=== PATIENT | female | born 1965 | race Caucasian/White ===

== ENCOUNTER 2016-08-22 23:21 | Observation (INO) | payer MEDICAID ==
[~2016-08-22] VITALS: Ht 170.2 cm; Wt 75.0 kg
[~2016-08-22 23:21] MED LIST: ALPR1TAB3 PO; CEPH-460 PO; PROT40TA PO; ULTR50TA5 PO; ZOLO100T PO
[2016-08-22 23:23] VITALS: BP 145/92; PULSE 100; RESP 22; TEMP 98.2; O2SAT 96
[2016-08-23] VITALS (10 sets, daily range): BP systolic 126–154; BP diastolic 76–93; PULSE 92–110; RESP 16–18; TEMP 97.8–98.8; O2SAT 96–100
[2016-08-23] MEDS ORDERED: SODIUM CHLOR 0.9% 1000 ML INJ 1,000 ML IV SCH (01:03)
[2016-08-23] MEDS ORDERED: KETOROLAC TROMETHAMINE 30 MG/ML (IVP) VIAL IVP ONE (01:15)
[2016-08-23] MEDS ORDERED: ONDANSETRON HCL 4 MG/2 ML VIAL IVP ONE (01:15)
[2016-08-23] MEDS ORDERED: SODIUM CHLORIDE 0.9% FLUSH 10 ML FLUSH IV FLUSH PRN ×2 (01:15→05:30)
[2016-08-23 01:55] LABS: AUTOMATED NEUTROPHIL # 2.9 TH/MM3 (1.8-7.7); BASOPHIL % 0.9 % (0.0-2.0); HEMATOCRIT 46.2 % (35.0-46.0); HEMO FLAGS DIFF FINAL; LYMPH % 22.9 % (9.0-44.0); LYMPHOCYTE # 0.9 TH/MM3 (1.0-4.8); MEAN CELL VOLUME 94.1 FL (80.0-100.0); MEAN CORPUSCULAR HEMOGLOBIN 33.4 PG (27.0-34.0); MEAN CORPUSCULAR HGB CONC 35.5 % (32.0-36.0); MONO % 1.2 % (0.0-8.0); PLATELET COUNT 269 TH/MM3 (150-450); RED BLOOD COUNT 4.91 MIL/MM3 (4.00-5.30); RED CELL DISTRIBUTION WIDTH 14.4 % (11.6-17.2); WHITE BLOOD COUNT 3.9 TH/MM3 (4.0-11.0)
[2016-08-23 02:07] LABS: APTT (PATIENT) 32.4 SEC (24.3-30.1); INTERNATIONAL NORMALIZED RATIO 1.3 RATIO; PROTHROMBIN TIME - PATIENT 14.7 SEC (9.8-11.6)
[2016-08-23 02:37] LABS: ALT (GPT) 345 U/L (10-53); ANION GAP 15 MEQ/L (5-15); AST (GOT) 629 U/L (15-37); BICARBONATE 23.4 MEQ/L (21.0-32.0); BLOOD UREA NITROGEN 23 MG/DL (7-18); CHLORIDE 97 MEQ/L (98-107); GLOMERULAR FILTRATION RATE 68 ML/MIN (>89); POTASSIUM 3.8 MEQ/L (3.5-5.1); SODIUM (NA) 135 MEQ/L (136-145)
[2016-08-23 02:38] LABS: ALKALINE PHOSPHATASE 250 U/L (45-117); TOTAL BILIRUBIN ADULT 1.9 MG/DL (0.2-1.0)
--- NOTE | 2016-08-23 03:10 | PD ---
HPI Chief Complaint: Abdominal Pain Time Seen by Provider: 00:54 Travel History International Travel<30 days: No Contact w/Intl Traveler<30days: No Traveled to known affect area: No History of Present Illness HPI 50yo F with PMH of anxiety, GERD, alcohol abuse presents to the ED with c/o abdominal pain today. +Vomiting. States there is blood in vomit. Pt had cholecystectomy 11/30/15 and was here with pneumonitis and elevated LFTs 01/31/16- 02/06/16. Denies any fever, chest pain, sob, focal weakness or numbness. PFSH Past Medical History Anxiety: Yes Depression: Yes Cardiovascular Problems: No Diminished Hearing: No Genitourinary: No Musculoskeletal: No Neurologic: No Reproductive: No Respiratory: No Immunizations Current: No Tetanus Vaccination: < 5 Years Influenza Vaccination: No ?: Not Menopausal: Yes : 2 Para: 2 Miscarriage: 0 : 0 Past Surgical History Abdominal Surgery: Yes (hernia) Cholecystectomy: Yes Other Surgery: Yes (BREAST IMPLANTS) Social History Alcohol Use: Yes (3-4 x per week.) Tobacco Use: No Substance Use: No Allergies-Medications (Allergen,Severity, Reaction): Coded Allergies: Amoxicillin (Verified Allergy, Severe, HIVES, 08/23/16) Reported Meds & Prescriptions Reported Meds & Active Scripts Active Reported Alprazolam 1 Mg Tab 1 Mg PO BID PRN Protonix (Pantoprazole Sodium) 40 Mg Tab 40 Mg PO DAILY Zoloft (Sertraline HCl) 100 Mg Tab 100 Mg PO DAILY Review of Systems Except as stated in HPI: all other systems reviewed are Neg Physical Exam Narrative GENERAL: 50yo F in mild distress. SKIN: Focused skin assessment warm/dry. HEAD: Atraumatic. Normocephalic. EYES: Pupils equal and round. No scleral icterus. No injection or drainage. ENT: No nasal bleeding or discharge. Mucous membranes pink and moist. NECK: Trachea midline. No JVD. CARDIOVASCULAR: Regular rate and rhythm. No murmur appreciated. RESPIRATORY: No accessory muscle use. Clear to auscultation. Breath sounds equal bilaterally. GASTROINTESTINAL: Abdomen soft, +TTP epigastric region. No rebound tenderness or guarding. MUSCULOSKELETAL: No obvious deformities. No clubbing. No cyanosis. No edema. NEUROLOGICAL: Awake and alert. No obvious cranial nerve deficits. Motor grossly within normal limits. Normal speech. PSYCHIATRIC: Appropriate mood and affect; insight and judgment normal. Data Data Last Documented VS Vital Signs Date Time Temp Pulse Resp B/P Pulse Ox O2 Delivery O2 Flow Rate FiO2 08/23/16 04:23 101 18 154/92 100 Room Air 08/22/16 23:23 98.2 Orders Complete Blood Count With Diff (08/23/16 01:03) Comprehensive Metabolic Panel (08/23/16 01:03) Lipase (08/23/16 01:03) Prothrombin Time / Inr (Pt) (08/23/16 01:03) Act Partial Throm Time (Ptt) (08/23/16 01:03) Urinalysis - C+S If Indicated (08/23/16 01:03) Ct Abd/Pel W Iv Contrast(Rout) (08/23/16 01:03) Iv Access Insert/Monitor (08/23/16 01:03) Ecg Monitoring (08/23/16 01:03) Oximetry (08/23/16 01:03) Ondansetron Inj (Zofran Inj) (08/23/16 01:15) Sodium Chlor 0.9% 1000 Ml Inj (Ns 1000 M (08/23/16 01:03) Sodium Chloride 0.9% Flush (Ns Flush) (08/23/16 01:15) Electrocardiogram (08/23/16 01:03) Ketorolac Inj (Toradol Inj) (08/23/16 01:15) Ed Urine Pregnancytest Poc (08/23/16 01:03) Tylenol (Acetaminophen) (08/23/16 03:08) Bhcg Screen Qualitative (08/23/16 03:12) Morphine Inj (Morphine Inj) (08/23/16 03:30) Iohexol 350 Inj (Omnipaque 350 Inj) (08/23/16 04:33) Metoclopramide Inj (Reglan Inj) (08/23/16 04:45) Sodium Chlor 0.9% 1000 Ml Inj (Ns 1000 M (08/23/16 05:15) Lorazepam Inj (Ativan Inj) (08/23/16 05:15) Admit Order (Ed Use Only) (08/23/16 05:29) Place In Observation (08/23/16 ) Vital Signs (Adult) Q4H (08/23/16 05:27) Activity Oob With Assistance (08/23/16 05:27) Game Master / Telemetry .CONTINUOUS (08/23/16 05:27) Diet Npo (08/23/16 Breakfast) Sodium Chloride 0.9% Flush (Ns Flush) (08/23/16 05:30) Sodium Chloride 0.9% Flush (Ns Flush) (08/23/16 09:00) Ondansetron Inj (Zofran Inj) (08/23/16 05:30) Naloxone Inj (Narcan Inj) (08/23/16 05:30) Sodium Chlor 0.9% 1000 Ml Inj (Ns 1000 M (08/23/16 05:30) Labs Laboratory Tests Test 08/23/16 01:45 White Blood Count 3.9 TH/MM3 Red Blood Count 4.91 MIL/MM3 Hemoglobin 16.4 GM/DL Hematocrit 46.2 % Mean Corpuscular Volume 94.1 FL Mean Corpuscular Hemoglobin 33.4 PG Mean Corpuscular Hemoglobin 35.5 % Concent Red Cell Distribution Width 14.4 % Platelet Count 269 TH/MM3 Mean Platelet Volume 8.0 FL Neutrophils (%) (Auto) 75.0 % Lymphocytes (%) (Auto) 22.9 % Monocytes (%) (Auto) 1.2 % Eosinophils (%) (Auto) 0.0 % Basophils (%) (Auto) 0.9 % Neutrophils # (Auto) 2.9 TH/MM3 Lymphocytes # (Auto) 0.9 TH/MM3 Monocytes # (Auto) 0.0 TH/MM3 Eosinophils # (Auto) 0.0 TH/MM3 Basophils # (Auto) 0.0 TH/MM3 CBC Comment DIFF FINAL Differential Comment Prothrombin Time 14.7 SEC Prothromb Time International 1.3 RATIO Ratio Activated Partial 32.4 SEC Thromboplast Time Sodium Level 135 MEQ/L Potassium Level 3.8 MEQ/L Chloride Level 97 MEQ/L Carbon Dioxide Level 23.4 MEQ/L Anion Gap 15 MEQ/L Blood Urea Nitrogen 23 MG/DL Creatinine 0.88 MG/DL Estimat Glomerular Filtration 68 ML/MIN Rate Random Glucose 141 MG/DL Calcium Level 9.4 MG/DL Total Bilirubin 1.9 MG/DL Aspartate Amino Transf 629 U/L (AST/SGOT) Alanine Aminotransferase 345 U/L (ALT/SGPT) Alkaline Phosphatase 250 U/L Total Protein 8.1 GM/DL Albumin 4.3 GM/DL Lipase 96 U/L Beta HCG, Qualitative 1 MIU/ML Acetaminophen Level LESS THAN 2.0 MCG/ML MDM Medical Decision Making Medical Screen Exam Complete: Yes Emergency Medical Condition: Yes Interpretation(s) EKG: Sinus tachycardia at 103bpm. Normal axis. Differential Diagnosis Pancreatitis vs. choledocholithiasis vs. alcoholic hepatitis Narrative Course 50yo F with PSH cholecystectomy presents to the ED with abdominal pain. Labs reviewed, low WBC at 3.9. Hemoconcentrated. Marked elevated liver enzymes, with AST 629, ALT 345, alk phos 250 compare to 01/2016. May be alcoholic hepatitis. Bilirubin has decreased to 1.9 compare to last time. Lipase normal at 96. Acetaminophen level was added since last time she had acetaminophen overdose when she had elevated liver enzymes and it was negative this time. BUN /creatinine 23/0.88. Pt has gotten zofran and reglan but is still nauseous and not tolerating PO. as per nurse, her vomit was brown, liquid and nonbloody. PT given NS IVF, still mildly tachycardic at 100-105bpm. Will given another liter of NS IVF. Pt may also be withdrawing from alcohol as her last drink was yesterday and she states she has been drinking daily. Will give ativan 1mg IV. CTa/p showed no acute abnormality. Slight fatty infiltration of liver again seen. Diagnosis Primary Impression: Intractable vomiting Qualified Code: R11.2 - Intractable vomiting with nausea, unspecified vomiting type Additional Impression: Elevated liver enzymes Admitting Information Admitting Physician Requests: Iesha Campbell DO Aug 23, 2016 03:10
[2016-08-23] MEDS ORDERED: MORPHINE SULFATE 8 MG/ML INJ IV PUSH ONE (03:30)
[2016-08-23] MEDS ORDERED: IOHEXOL 350 MG/ML 10 ML VIAL (for RAD DIAG) IV ONE (04:33)
[2016-08-23] MEDS ORDERED: METOCLOPRAMIDE INJ 10 MG in SODIUM CHLORIDE 0.9% INJ 50 ML IV ONE (04:45)
--- NOTE | 2016-08-23 04:55 | RADRPT ---
EXAM DATE/TIME: 08/23/2016 04:30 [facility] COMPARISON: CT ABDOMEN & PELVIS W CONTRAST, November 26, 2015, 23:05. INDICATIONS : Abdomen pain with nausea and vomiting. IV CONTRAST: 100 cc Omnipaque 350 (iohexol) IV ORAL CONTRAST: No oral contrast ingested. RADIATION DOSE: 11.64 CTDIvol (mGy) MEDICAL HISTORY : Gallstones SURGICAL HISTORY : Hysterectomy. Cholecystectomy.Hernia repair. ENCOUNTER: Initial ACUITY: 1 day PAIN SCALE: 5/10 LOCATION: abdomen TECHNIQUE: Volumetric scanning of the abdomen and pelvis was performed. Using automated exposure control and ad justment of the mA and/or kV according to patient size, radiation dose was kept as low as reasonably achievable to obtain optimal diagnostic quality images. FINDINGS: LOWER LUNGS: The visualized lower lungs are clear. LIVER: Homogeneous density without lesion. Slightly fatty. There is no dilation of the biliary tree. Interi m cholecystectomy. SPLEEN: Normal size without lesion. PANCREAS: Within normal limits. KIDNEYS: Normal in size and shape. There is no mass, stone or hydronephrosis. ADRENAL GLANDS: Within normal limits. VASCULAR: There is no aortic aneurysm. BOWEL/MESENTERY: The stomach, small bowel, and colon demonstrate no acute abnormality. There is no free intraperitone al air or fluid. The appendix is well-visualized and has a normal appearance. ABDOMINAL WALL: Within normal limits. RETROPERITONEUM: There is no lymphadenopathy. BLADDER: No wall thickening or mass. REPRODUCTIVE: Within normal limits. INGUINAL: There is no lymphadenopathy or hernia. MUSCULOSKELETAL: Disc space narrowing with vacuum phenomena again noted at L5/S1. No acute bony abnormality seen. CONCLUSION: No acute abnormality demonstrated. Cholecystectomy since the prior CT without evidence of an acute co mplication. Slight fatty infiltration of the liver again seen. Segundo Montiel MD on August 23, 2016 at 4:51 Board Certified Radiologist. This report was verified electronically.
[2016-08-23] MEDS ORDERED: SODIUM CHLOR 0.9% 1000 ML INJ 1,000 ML IV ONE (05:15)
[2016-08-23] MEDS ORDERED: LORazepam 2 MG/ML VIAL IV PUSH ONE (05:15)
[2016-08-23] MEDS ORDERED: NALOXONE HCL 0.4 MG/ML AMP IV PRN (05:30)
[2016-08-23] MEDS: SODIUM CHLOR 0.9% 1000 ML INJ 1,000 ML IV SCH ×3 (06:46→20:37)
--- NOTE | 2016-08-23 07:41 | EKG ---
Date Performed: 08/23/2016 Time Performed: 03:33:30 PTAGE: 50 years EKG: SINUS TACHYCARDIA POSSIBLE LEFT ATRIAL ENLARGEMENT ABNORMAL RHYTHM ECG NO SIGNIFICANT LARIOS E FROM PRIOR ELECTROCARDIOGRAM. PREVIOUS TRACING : 01/31/2016 04.01 DOCTOR: Lester Bauer Interpretating Date/Time 08/23/2016 07:40:27
[2016-08-23] MEDS: SODIUM CHLORIDE 0.9% FLUSH 10 ML FLUSH IV FLUSH SCH ×2 (08:54→20:37)
[2016-08-23] MEDS: ONDANSETRON HCL 4 MG/2 ML VIAL IVP PRN ×2 (10:10→20:38)
[2016-08-23] MEDS: MORPHINE SULFATE 4 MG/ML INJ IV PUSH PRN ×3 (10:10→20:38)
--- NOTE | 2016-08-23 10:23 | HHI.HP ---
[facility] Non[facility]Staff Admission Diagnosis Dehydration, intractable vomiting, elevated liver enzymes Diagnoses: Chief Complaint: Intractable emesis and elevated LFTs Travel History International Travel<30 Days: No Contact w/Intl Traveler <30 Da: No Traveled to Known Affected Are: No History of Present Illness 50-year-old female past medical history of cholelithiasis status post laparoscopic cholecystectomy and ERCP with sphincterotomy in November 2015 now presents with intractable emesis and abdominal pain. Patient stated that yesterday she drank some milk in the morning took her kids to school been started having severe emesis about 20 times yesterday. She stated that emesis looked bloody. She then developed abdominal pain. Patient also had diarrhea for the last few weeks. About 3-4 loose stools a day. Denies any recent use of antibiotics. She also states she had a fever on Friday of 102. She has been afebrile since then. Patient also stated that she had a get a stent removed 3 months from the procedure but she was unable to due to insurance denial. Patient stated that she drinks about 3 glasses of wine 2 times a week. She denies any tremors, nausea vomiting or any withdrawal symptoms that she does not drink. Patient also stated that she has a migraine headache. She stated that this is her usual migraine headache. Patient stated Aleve usually resolves the headache. Review of Systems Constitutional: DENIES: Diaphoretic episodes, Fatigue, Fever, Weight gain, Weight loss, Chills, Dizziness, Change in appetite, Night Sweats Endocrine: DENIES: Abnorml menstrual pattern, Heat/cold intolerance, Polydipsia , Polyuria, Polyphagia Eyes: DENIES: Blurred vision, Diplopia, Eye inflammation, Eye pain, Vision loss , Photosensitivity, Double Vision Ears, nose, mouth, throat: DENIES: Tinnitus, Hearing loss, Vertigo, Nasal discharge, Oral lesions, Throat pain, Hoarseness, Ear Pain, Running Nose, Epistaxis, Sinus Pain, Toothache, Odynophagia Respiratory: DENIES: Apneas, Cough, Snoring, Wheezing, Hemoptysis, Sputum production, Shortness of breath Cardiovascular: DENIES: Chest pain, Palpitations, Syncope, Dyspnea on Exertion , PND, Lower Extremity Edema, Orthopnea, Claudication Gastrointestinal: COMPLAINS OF: Abdominal pain, Diarrhea, Nausea, Vomiting, DENIES: Black stools, Bloody stools, Constipation, Difficulty Swallowing, Anorexia Genitourinary: DENIES: Abnormal vaginal bleeding, Dysmenorrhea, Dyspareunia, Sexual dysfunction, Urinary frequency, Urinary incontinence, Urgency, Hematuria , Dysuria, Nocturia, Vaginal discharge Musculoskeletal: DENIES: Joint pain, Muscle aches, Stiffness, Joint Swelling, Back pain, Neck pain Integumentary: DENIES: Abnormal pigmentation, Pruritus, Rash, Nail changes, Breast masses, Breast skin changes, Nipple discharge Hematologic/lymphatic: DENIES: Bruising, Lymphadenopathy Immunologic/allergic: DENIES: Eczema, Urticaria Neurologic: DENIES: Abnormal gait, Headache, Localized weakness, Paresthesias, Seizures, Speech Problems, Tremor, Poor Balance Psychiatric: DENIES: Anxiety, Confusion, Mood changes, Depression, Hallucinations, Agitation, Suicidal Ideation, Homicidal Ideation, Delusions Positive for migraine headache. Past Family Social History Past Medical History History of cholelithiasis Migraines Cirrhosis of the liver Depression Past Surgical History ERCP with sphincterotomy Laparoscopic cholecystectomy Liver biopsy Reported Medications Alprazolam 1 Mg Tab 1 Mg PO BID PRN Protonix (Pantoprazole Sodium) 40 Mg Tab 40 Mg PO DAILY Zoloft (Sertraline HCl) 100 Mg Tab 100 Mg PO DAILY Allergies: Coded Allergies: Amoxicillin (Verified Allergy, Severe, HIVES, 08/23/16) Active Ordered Medications Current Medications Ondansetron HCl 4 mg 4 mg ONCE ONCE IVP Last administered on 08/23/16 02:26; Start 08/23/16 at 01:15; Stop 08/23/16 at 01:16; Status DC Sodium Chloride (NS 1000 ml Inj) 1,000 ml @ 1,000 mls/hr Q1H IV Last administered on 08/23/16 02:26; Start 08/23/16 at 01:03; Stop 08/23/16 at 02:02 ; Status DC Sodium Chloride (NS Flush) 2 ml UNSCH PRN IV FLUSH FLUSH AFTER USING IV ACCESS ; Start 08/23/16 at 01:15; Stop 08/23/16 at 05:35; Status DC Ketorolac Tromethamine (Toradol Inj) 30 mg ONCE ONCE IVP Last administered on 08/23/16 02:26; Start 08/23/16 at 01:15; Stop 08/23/16 at 01:16; Status DC Morphine Sulfate (Morphine Inj) 6 mg ONCE ONCE IV PUSH Last administered on 04:25; Start 08/23/16 at 03:30; Stop 08/23/16 at 03:31; Status DC Iohexol 100 ml 100 ml STK-MED ONCE IV Last administered on 08/23/16 04:33; Start 08/23/16 at 04:33; Stop 08/23/16 at 04:34; Status DC Metoclopramide HCl 10 mg/Sodium Chloride 52 ml @ 104 mls/hr ONCE ONCE IV Last administered on 08/23/16 05:10; Start 08/23/16 at 04:45; Stop 08/23/16 at 05:14; Status DC Sodium Chloride (NS 1000 ml Inj) 1,000 ml @ 999 mls/hr BOLUS ONCE IV Last administered on 08/23/16 06:45; Start 08/23/16 at 05:15; Stop 08/23/16 at 06:15 ; Status DC Lorazepam (Ativan Inj) 1 mg ONCE ONCE IV PUSH Last administered on 08/23/16 07:27; Start 08/23/16 at 05:15; Stop 08/23/16 at 05:16; Status DC Sodium Chloride (NS Flush) 2 ml UNSCH PRN IV FLUSH FLUSH AFTER USING IV ACCESS ; Start 08/23/16 at 05:30 Sodium Chloride (NS Flush) 2 ml BID IV FLUSH Last administered on 08/23/16 08: 54; Start 08/23/16 at 09:00 Ondansetron HCl (Zofran Inj) 4 mg Q6H PRN IVP NAUSEA OR VOMITING Last administered on 08/23/16 10:10; Start 08/23/16 at 05:30 Naloxone HCl 0.4 mg 0.4 mg UNSCH PRN IV SEE LABEL COMMENTS; Start 08/23/16 at 05:30 Sodium Chloride (NS 1000 ml Inj) 1,000 ml @ 100 mls/hr Q10H IV Last administered on 08/23/16 06:46; Start 08/23/16 at 05:30 Morphine Sulfate (Morphine Inj) 2 mg Q3H PRN IV PUSH pain >5 Last administered on 08/23/16t 10:10; Start 08/23/16 at 05:45 Family History Father had mesothelioma. Mother had gallbladder cancer. Social History Patient was at home with her . Denies any tobacco use. Patient drinks about 3 glasses of wine about twice a week. Denies illicit drug use. Physical Exam Vital Signs Vital Signs Date Time Temp Pulse Resp B/P Pulse Ox O2 Delivery O2 Flow Rate FiO2 08/23/16 09:58 98.1 108 17 126/82 98 Room Air 08/23/16 07:10 17 08/23/16 07:10 17 99 Room Air 08/23/16 07:10 16 08/23/16 07:10 17 08/23/16 07:10 97.8 108 16 148/76 99 Room Air 08/23/16 06:49 98.4 110 18 150/93 96 Room Air 08/23/16 04:23 101 18 154/92 100 Room Air 08/23/16 04:21 100 Room Air 08/23/16 00:49 18 08/22/16 23:23 98.2 100 22 145/92 96 Room Air Physical Exam GENERAL: This is a well-nourished, well-developed patient, in no apparent distress. SKIN: No rashes, ecchymoses or lesions. Cool and dry. HEAD: Atraumatic. Normocephalic. No temporal or scalp tenderness. EYES: Pupils equal round and reactive. Extraocular motions intact. No scleral icterus. No injection or drainage. ENT: Nose without bleeding, purulent drainage or septal hematoma. Throat without erythema, tonsillar hypertrophy or exudate. Uvula midline. Airway patent. NECK: Trachea midline. No JVD or lymphadenopathy. Supple, nontender, no meningeal signs. CARDIOVASCULAR: Regular rate and rhythm without murmurs, gallops, or rubs. RESPIRATORY: Clear to auscultation. Breath sounds equal bilaterally. No wheezes , rales, or rhonchi. GASTROINTESTINAL: Abdomen soft, non-tender, mild diffuse tenderness to palpation. No hepato-splenomegaly, or palpable masses. No guarding. MUSCULOSKELETAL: Extremities without clubbing, cyanosis, or edema. No joint tenderness, effusion, or edema noted. No calf tenderness. Negative Homans sign bilaterally. NEUROLOGICAL: Awake and alert. Cranial nerves II through XII intact. Motor and sensory grossly within normal limits. Five out of 5 muscle strength in all muscle groups. Normal speech. Laboratory Laboratory Tests Test 08/23/16 01:45 White Blood Count 3.9 Red Blood Count 4.91 Hemoglobin 16.4 Hematocrit 46.2 Mean Corpuscular Volume 94.1 Mean Corpuscular Hemoglobin 33.4 Mean Corpuscular Hemoglobin 35.5 Concent Red Cell Distribution Width 14.4 Platelet Count 269 Mean Platelet Volume 8.0 Neutrophils (%) (Auto) 75.0 Lymphocytes (%) (Auto) 22.9 Monocytes (%) (Auto) 1.2 Eosinophils (%) (Auto) 0.0 Basophils (%) (Auto) 0.9 Neutrophils # (Auto) 2.9 Lymphocytes # (Auto) 0.9 Monocytes # (Auto) 0.0 Eosinophils # (Auto) 0.0 Basophils # (Auto) 0.0 CBC Comment DIFF FINAL Differential Comment Prothrombin Time 14.7 Prothromb Time International 1.3 Ratio Activated Partial 32.4 Thromboplast Time Sodium Level 135 Potassium Level 3.8 Chloride Level 97 Carbon Dioxide Level 23.4 Anion Gap 15 Blood Urea Nitrogen 23 Creatinine 0.88 Estimat Glomerular Filtration 68 Rate Random Glucose 141 Calcium Level 9.4 Total Bilirubin 1.9 Aspartate Amino Transf 629 (AST/SGOT) Alanine Aminotransferase 345 (ALT/SGPT) Alkaline Phosphatase 250 Total Protein 8.1 Albumin 4.3 Lipase 96 Beta HCG, Qualitative 1 Acetaminophen Level LESS THAN 2.0 Result Diagram: 08/23/16 0145 08/23/16 0145 Imaging Last Impressions Abdomen/Pelvis CT 08/23/16 0103 Signed Impressions: Service Date/Time: Tuesday, August 23, 2016 04:30 - CONCLUSION: No acute abnormality demonstrated. Cholecystectomy since the prior CT without evidence of an acute complication. Slight fatty infiltration of the liver again seen. Segundo Montiel MD Assessment and Plan Assessment and Plan 50-year-old female history of cholelithiasis who presented with emesis and abdominal pain Intractable emesis/abdominal pain -In a patient with a history of cholelithiasis status post laparoscopic cholecystectomy and ERCP with sphincterotomy -LFTs are elevated. Lipase is within normal limits. CT scan of the abdomen and pelvis does not show any acute process. -Will consult GI patient may need another ERCP. -We'll continue to trend LFTs. -Continue with supportive care with IV fluids, antibiotics, pain medication. -We'll give her IV Protonix 40 mg IV twice a day. Elevated liver enzymes -See treatment as above. History of cirrhosis -Stable. DVT prophylaxis -SCDs. Code Status full Discussed Condition With patient Norma Way MD Aug 23, 2016 10:23
[2016-08-23] MEDS: PANTOPRAZOLE SODIUM 40 MG VIAL IV PUSH SCH (12:59)
--- NOTE | 2016-08-23 15:04 | PD.CONS ---
HPI History of Present Illness This is a 50 year old female who came to the ER for evaluation of nausea, vomiting, and abdominal pain. She was hospitalized for elevated LFTs and abdominal pain in November of 2015. At that time, she had liver workup---> negative hepatitis profile, FAIZA negative, AMA negative, ASMA negative, Hemochromatosis negative- C282Y not identified, H63D one copy identified, AFP 9.3, Alpha 1 Antitrypsin 132, Ceruloplasmin 17, Iron saturation 93.4%, Ferritin 864. She then went on to have ERCP with sphincterotomy (11/29/15)--> Normal ERCP. This was followed by laparoscopic cholecystectomy with intraoperative liver biopsy and repair of umbilical hernia (11/29/16) for cholelithiasis, cholecystitis, elevated LFTs, cirrhosis of liver, and umbilical hernia. Pathology of the gallbladder revealed mild chronic cholecystitis and cholelithiasis. Liver biopsy revealed cirrhosis and steatohepatitis. She was then hospitalized in January 2016 for Acetaminophen toxicity and treated with acetylcysteine per protocol. Her LFTs improved although they remained elevated , on 02/05/16, she had T. Bili 4.1, AST 61, ALT 53, Alk Phosph 184. I do not have records to outpatient labs, but she was referred to GI for evaluation of elevated LFTs in February of 2016, but she has not been seen. She reports that she had the sudden onset of nausea, vomiting, abdominal pain, and looser stools yesterday morning. She had frequent nausea/vomiting, consisting of undigested food and bile, but no hematemesis. She has associated abdominal pain in her mid abdomen- intermittent dull ache without radiation. She reports that she is not currently having this since they gave her pain medicine. She denies any fever or chills. She also had several loose stools, but states that she does have an issue with constipation and recently started taking Benefiber,and probiotics and reports that she has been having looser than normal stools. She has not seen any dark stools or blood in her stools. She does have GERD and frequently gets acid reflux if she eats spicy foods. She takes TUMS for this. She came to the ER for evaluation and was noted to have elevated LFTs. She takes Flaxseed oil, Xanax, Zoloft, Benefiber, Probiotics and recently started Turmin (?SP) 2.5 months ago because she read that it was "good for you" and a natural alternative to pain medicine. She reports that she tries not to drink ETOH often, but she will drink a 2-3 drinks when she goes out, usually once a week, sometimes she will go a month without drinking. She takes advil or aleve occasionally, but no acetaminophen containing products. She reports that her son was sick with N/V/D for about 5 days last week. She denies any recent travel, antibiotic use. She did have sushi the week before last. (Destiny Manning) PFSH Past Medical History Liver cirrhosis, Steatohepatitis Depression GERD Gastroesophageal reflux disease Hemorrhoids Hx Alcoholic hepatitis Migraines Past Surgical History ERCP with sphincterotomy Laparoscopic cholecystectomy with intraoperative liver biopsy and repair of umbilical hernia Breast augmentation (Destiny Manning) Coded Allergies: Amoxicillin (Verified Allergy, Severe, HIVES, 08/23/16) Medications Allergies Coded Allergies Type Severity Reaction Last Updated Verified Amoxicillin Allergy Severe HIVES 08/23/16 Yes Active Scripts Medications Dose Route/Sig Days Date Category Alprazolam 1 Mg Tab 1 Mg PO BID PRN 03/01/16 Reported Protonix (Pantoprazole Sodium) 40 Mg Tab 40 Mg PO DAILY 02/26/16 Reported Zoloft (Sertraline HCl) 100 Mg Tab 100 Mg PO DAILY 02/26/16 Reported Family History Father had mesothelioma. Mother had gallbladder cancer. Social History Denies any tobacco use. Patient drinks about 3 glasses of wine about once a week. Denies illicit drug use. (Destiny Manning) Review of Systems Constitutional: COMPLAINS OF: Fatigue, Chills, DENIES: Fever, Change in appetite Respiratory: DENIES: Cough, Shortness of breath Cardiovascular: DENIES: Chest pain Gastrointestinal: COMPLAINS OF: Abdominal pain, Diarrhea, Nausea, Vomiting, Heartburn, DENIES: Black stools, Bloody stools, Constipation, Swelling of Abdomen, Hematemesis Musculoskeletal: COMPLAINS OF: Joint pain Integumentary: DENIES: Abnormal pigmentation, Rash Hematologic/lymphatic: DENIES: Bruising Neurologic: COMPLAINS OF: Headache Psychiatric: COMPLAINS OF: Anxiety, DENIES: Confusion (Destiny Manning) GI Exam Vitals I&O Vital Signs Date Time Temp Pulse Resp B/P Pulse Ox O2 Delivery O2 Flow Rate FiO2 08/23/16 14:28 18 08/23/16 14:07 98.8 102 18 129/78 98 08/23/16 11:25 104 16 131/80 97 08/23/16 11:18 97.8 106 17 134/80 97 Room Air 08/23/16 09:58 98.1 108 17 126/82 98 Room Air 08/23/16 07:10 17 08/23/16 07:10 17 99 Room Air 08/23/16 07:10 16 08/23/16 07:10 17 08/23/16 07:10 97.8 108 16 148/76 99 Room Air 08/23/16 06:49 98.4 110 18 150/93 96 Room Air 08/23/16 04:23 101 18 154/92 100 Room Air 08/23/16 04:21 100 Room Air 08/23/16 00:49 18 08/22/16 23:23 98.2 100 22 145/92 96 Room Air Imaging Last Impressions Abdomen/Pelvis CT 08/23/16 0103 Signed Impressions: Service Date/Time: Tuesday, August 23, 2016 04:30 - CONCLUSION: No acute abnormality demonstrated. Cholecystectomy since the prior CT without evidence of an acute complication. Slight fatty infiltration of the liver again seen. Segundo Montiel MD Laboratory Test 08/23/16 01:45 White Blood Count 3.9 TH/MM3 Red Blood Count 4.91 MIL/MM3 Hemoglobin 16.4 GM/DL Hematocrit 46.2 % Mean Corpuscular Volume 94.1 FL Mean Corpuscular Hemoglobin 33.4 PG Mean Corpuscular Hemoglobin 35.5 % Concent Red Cell Distribution Width 14.4 % Platelet Count 269 TH/MM3 Mean Platelet Volume 8.0 FL Neutrophils (%) (Auto) 75.0 % Lymphocytes (%) (Auto) 22.9 % Monocytes (%) (Auto) 1.2 % Eosinophils (%) (Auto) 0.0 % Basophils (%) (Auto) 0.9 % Neutrophils # (Auto) 2.9 TH/MM3 Lymphocytes # (Auto) 0.9 TH/MM3 Monocytes # (Auto) 0.0 TH/MM3 Eosinophils # (Auto) 0.0 TH/MM3 Basophils # (Auto) 0.0 TH/MM3 CBC Comment DIFF FINAL Differential Comment Prothrombin Time 14.7 SEC Prothromb Time International 1.3 RATIO Ratio Activated Partial 32.4 SEC Thromboplast Time Sodium Level 135 MEQ/L Potassium Level 3.8 MEQ/L Chloride Level 97 MEQ/L Carbon Dioxide Level 23.4 MEQ/L Anion Gap 15 MEQ/L Blood Urea Nitrogen 23 MG/DL Creatinine 0.88 MG/DL Estimat Glomerular Filtration 68 ML/MIN Rate Random Glucose 141 MG/DL Calcium Level 9.4 MG/DL Total Bilirubin 1.9 MG/DL Aspartate Amino Transf 629 U/L (AST/SGOT) Alanine Aminotransferase 345 U/L (ALT/SGPT) Alkaline Phosphatase 250 U/L Total Protein 8.1 GM/DL Albumin 4.3 GM/DL Lipase 96 U/L Beta HCG, Qualitative 1 MIU/ML Acetaminophen Level LESS THAN 2.0 MCG/ML Physical Examination HEENT: Normocephalic; atraumatic; no jaundice. CHEST: CTA CARDIAC: RRR. ABDOMEN: Soft, nondistended, nontender; no hepatosplenomegaly; bowel sounds are present in all four quadrants. EXTREMITIES: No clubbing, cyanosis, or edema. SKIN: Normal; no rash; no jaundice. AUT[employer]IC: No focal deficits; alert and oriented times three. (Destiny Manning) Assessment and Plan Plan ASSESSMENT: - Abdominal pain with N/V/D. Abdomen/Pelvis CT (08/23/16)----> No acute abnormality demonstrated. Cholecystectomy since the prior CT without evidence of an acute complication. Slight fatty infiltration of the liver again seen. She reports that her son was sick with N/V/D for about 5 days last week. She denies any recent travel, antibiotic use. She did have sushi the week before last. Im not convinced that her liver enzyme derangement is related to her N/V/D, pain. Her son had the same symptoms last week and she has had ongoing elevated LFTs and is taking an unknown herbal supplement at home and continues to drink ETOH. - Elevated LFTs. She was hospitalized for elevated LFTs and abdominal pain in November of 2015. At that time, she had liver workup---> negative hepatitis profile, FAIZA negative, AMA negative, ASMA negative, Hemochromatosis negative- C282Y not identified, H63D one copy identified, AFP 9.3, Alpha 1 Antitrypsin 132, Ceruloplasmin 17, Iron saturation 93.4%, Ferritin 864. She then went on to have ERCP with sphincterotomy (11/29/15)--> Normal ERCP. This was followed by laparoscopic cholecystectomy with intraoperative liver biopsy and repair of umbilical hernia (11/29/16) for cholelithiasis, cholecystitis, elevated LFTs, cirrhosis of liver, and umbilical hernia. Pathology of the gallbladder revealed mild chronic cholecystitis and cholelithiasis. Liver biopsy revealed cirrhosis and steatohepatitis. She was then hospitalized in January 2016 for Acetaminophen toxicity and treated with acetylcysteine per protocol. Her LFTs improved although they remained elevated, on , she had T. Bili 4.1, AST 61, ALT 53, Alk Phosph 184. I do not have records to outpatient labs, but she was referred to GI for evaluation of elevated LFTs in February of 2016, but she has not been seen. She does still drink 3 drinks, usually once a week. She does not use acetaminophen containing products, but did recently start an herbal supplement 2.5 months ago called Turmin (sp?) She says this is definitely tumeric but cannot give me the name. - GERD and frequently gets acid reflux if she eats spicy foods. She takes TUMS for this. - Hx Constipation, now looser stools. Takes flaxseed oil, probiotics, benefiber. - Dehydration, IVF per primary. PLAN: - Low fat diet as tolerated- no longer having n/v/pain - PPI - Zofran prn - Stool for CDiff, C/S, Giardia, O&P - CBC, CMP in am - Complete ETOH cessation- d/w patient - No herbal supplements unless approved by her GI physician- d/w patient - Supportive care - ??? Two separate issues- possibly a gastroenteritis and a separate acute hepatitis- possibly related to herbal supplements vs. alcohol use. - Further recommendations to follow based on results of above - Pt seen and examined by Dr. Akbar and myself and this note is written on his behalf (Destiny Manning) Physician Comments Patient seen and examined Agree with above Continue with current supportive care Monitor labs LFT elevation is probably multi-factorial relating to alcohol and possible underlying infection or inflammation especially in somebody with underlying cirrhosis and steatohepatitis We will continue to monitor (Sharan Akbar MD) Destiny Manning Aug 23, 2016 15:04 Sharan Akbar MD Aug 23, 2016 22:29
[2016-08-23] MEDS: ALPRAZolam 1 MG TAB PO PRN (20:37)
[2016-08-23 21:16] LABS: BLOOD, URINE NEG (NEG); GLUCOSE,URINE NEG (NEG); KETONE, URINE NEG (NEG); NITRITE,URINE NEG (NEG); SQUAMOUS EPITHELIAL CELL URINE <1 /hpf (0-5); URINE COLOR LIGHT-YELLOW (YELLW/STRAW)
[2016-08-23 21:23] LABS: COMMENT (UR) CULT NOT INDICATED; CULTURE IF INDICATED CULT NOT INDICATED
[2016-08-24 00:05] VITALS: BP 123/84; PULSE 82; RESP 19; TEMP 98.5; O2SAT 95
[2016-08-24] MEDS: PANTOPRAZOLE SODIUM 40 MG VIAL IV PUSH SCH ×2 (00:24→12:33)
[2016-08-24] MEDS: MORPHINE SULFATE 4 MG/ML INJ IV PUSH PRN ×3 (00:25→10:28)
[2016-08-24] MEDS: SODIUM CHLOR 0.9% 1000 ML INJ 1,000 ML IV SCH ×3 (03:38→16:28)
[2016-08-24 04:17] VITALS: BP 138/94; PULSE 83; RESP 19; TEMP 98.2; O2SAT 94
[2016-08-24 07:32] LABS: HEMATOCRIT 42.1 % (35.0-46.0); MEAN CELL VOLUME 95.8 FL (80.0-100.0); MEAN CORPUSCULAR HEMOGLOBIN 33.3 PG (27.0-34.0); MEAN CORPUSCULAR HGB CONC 34.8 % (32.0-36.0); PLATELET COUNT 169 TH/MM3 (150-450); RED CELL DISTRIBUTION WIDTH 14.5 % (11.6-17.2); REVIEW FLAG FINAL; WHITE BLOOD COUNT 5.7 TH/MM3 (4.0-11.0)
[2016-08-24 08:00] VITALS: BP 149/101; PULSE 77; PULSE 78; RESP 18; TEMP 97.7; O2SAT 97
[2016-08-24 08:33] LABS: ALKALINE PHOSPHATASE 200 U/L (45-117); ALT (GPT) 207 U/L (10-53); ANION GAP 7 MEQ/L (5-15); AST (GOT) 291 U/L (15-37); BICARBONATE 26.8 MEQ/L (21.0-32.0); BLOOD UREA NITROGEN 10 MG/DL (7-18); CHLORIDE 104 MEQ/L (98-107); GLOMERULAR FILTRATION RATE 65 ML/MIN (>89); POTASSIUM 3.9 MEQ/L (3.5-5.1); SODIUM (NA) 138 MEQ/L (136-145); TOTAL BILIRUBIN ADULT 4.9 MG/DL (0.2-1.0)
[2016-08-24] MEDS: ALPRAZolam 1 MG TAB PO PRN (09:03)
[2016-08-24] MEDS: SODIUM CHLORIDE 0.9% FLUSH 10 ML FLUSH IV FLUSH SCH (09:04)
--- NOTE | 2016-08-24 10:00 | HHI.GIFU ---
Subjective Remarks 50 yo female lying in bed in no apparent distress. Reports she continues to have abdominal pain, which she localizes to epigastric and L side of her abdomen. States pain is improving. States she continues to have nausea and vomiting, but reports this is improving as well. Noted liver enzymes have improved today. WBC normal. Patient asking if she can go home today. (Anamika Emmanuel) Objective Vitals I&O Vital Signs Date Time Temp Pulse Resp B/P Pulse Ox O2 Delivery O2 Flow Rate FiO2 08/24/16 08:00 97.7 78 18 149/101 97 08/24/16 04:17 98.2 83 19 138/94 94 08/24/16 00:05 98.5 82 19 123/84 95 08/23/16 20:00 92 08/23/16 19:28 98.2 95 18 145/85 97 08/23/16 14:28 18 08/23/16 14:07 98.8 102 18 129/78 98 08/23/16 11:25 104 16 131/80 97 08/23/16 11:18 97.8 106 17 134/80 97 Room Air 08/23/16 09:58 98.1 108 17 126/82 98 Room Air Laboratory Laboratory Tests Test 08/23/16 08/24/16 20:40 07:05 Urine Color LIGHT-YELLOW Urine Turbidity CLEAR Urine pH 7.0 Urine Specific [place] 1.002 Urine Protein NEG Urine Glucose (UA) NEG Urine Ketones NEG Urine Occult Blood NEG Urine Nitrite NEG Urine Bilirubin NEG Urine Urobilinogen LESS THAN 2.0 Urine Leukocyte Esterase NEG Urine RBC LESS THAN 1 Urine WBC LESS THAN 1 Urine Squamous Epithelial <1 Cells Microscopic Urinalysis Comment CULT NOT INDICATED White Blood Count 5.7 Red Blood Count 4.40 Hemoglobin 14.6 Hematocrit 42.1 Mean Corpuscular Volume 95.8 Mean Corpuscular Hemoglobin 33.3 Mean Corpuscular Hemoglobin 34.8 Concent Red Cell Distribution Width 14.5 Platelet Count 169 Mean Platelet Volume 8.3 Sodium Level 138 Potassium Level 3.9 Chloride Level 104 Carbon Dioxide Level 26.8 Anion Gap 7 Blood Urea Nitrogen 10 Creatinine 0.92 Estimat Glomerular Filtration 65 Rate Random Glucose 102 Calcium Level 8.2 Total Bilirubin 4.9 Aspartate Amino Transf 291 (AST/SGOT) Alanine Aminotransferase 207 (ALT/SGPT) Alkaline Phosphatase 200 Total Protein 7.1 Albumin 3.7 Imaging Last Impressions Abdomen/Pelvis CT 08/23/16 0103 Signed Impressions: Service Date/Time: Tuesday, August 23, 2016 04:30 - CONCLUSION: No acute abnormality demonstrated. Cholecystectomy since the prior CT without evidence of an acute complication. Slight fatty infiltration of the liver again seen. Segundo Montiel MD Physical Exam HEENT: PERRLA NECK: Neck is supple, no JVD, no lymphadenopathy. CHEST: CTA CARDIAC: RRR ABDOMEN: Obese. Soft, nondistended, mild tenderness on palpation of left side of abdomen; bowel sounds are x 4 quadrants EXTREMITIES: No clubbing, cyanosis, or edema. SKIN: Normal; no rash; no jaundice. STEEL WORKER: No focal deficits; A & O x 3 (Anamika Emmanuel) Assessment and Plan Plan ASSESSMENT: - Abdominal pain with N/V/D. Abdomen/Pelvis CT (08/23/16)----> No acute abnormality demonstrated. Cholecystectomy since the prior CT without evidence of an acute complication. Slight fatty infiltration of the liver again seen. She reports that her son was sick with N/V/D for about 5 days last week. She denies any recent travel, antibiotic use. She did have sushi the week before last. Im not convinced that her liver enzyme derangement is related to her N/V/D, pain. Her son had the same symptoms last week and she has had ongoing elevated LFTs and is taking an unknown herbal supplement at home and continues to drink ETOH. Patient states she is not going to take the herbal supplements any more. - Elevated LFTs. She was hospitalized for elevated LFTs and abdominal pain in November of 2015. At that time, she had liver workup---> negative hepatitis profile, FAIZA negative, AMA negative, ASMA negative, Hemochromatosis negative- C282Y not identified, H63D one copy identified, AFP 9.3, Alpha 1 Antitrypsin 132, Ceruloplasmin 17, Iron saturation 93.4%, Ferritin 864. She then went on to have ERCP with sphincterotomy (11/29/15)--> Normal ERCP. This was followed by laparoscopic cholecystectomy with intraoperative liver biopsy and repair of umbilical hernia (11/29/16) for cholelithiasis, cholecystitis, elevated LFTs, cirrhosis of liver, and umbilical hernia. Pathology of the gallbladder revealed mild chronic cholecystitis and cholelithiasis. Liver biopsy revealed cirrhosis and steatohepatitis. She was then hospitalized in January 2016 for Acetaminophen toxicity and treated with acetylcysteine per protocol. Her LFTs improved although they remained elevated, on , she had T. Bili 4.1, AST 61, ALT 53, Alk Phosph 184. I do not have records to outpatient labs, but she was referred to GI for evaluation of elevated LFTs in February of 2016, but she has not been seen. She does still drink 3 drinks, usually once a week. She does not use acetaminophen containing products, but did recently start an herbal supplement 2.5 months ago called Turmin (sp?) She says this is definitely tumeric but cannot give me the name. LFTs improved today--AST 291, ALT 207. Alk Phos 200. WBC normal today. - GERD and frequently gets acid reflux if she eats spicy foods. She takes TUMS for this. - Hx Constipation, now looser stools. Takes flaxseed oil, probiotics, benefiber. - Dehydration, IVF per primary. PLAN: - Low fat diet as tolerated - PPI - Zofran prn - Stool for CDiff, C/S, Giardia, O&P - Monitor labs - Complete ETOH cessation- d/w patient, patient agrees - No herbal supplements unless approved by her GI physician- d/w patient, patient agrees - Supportive care - ??? Two separate issues- possibly a gastroenteritis and a separate acute hepatitis- possibly related to herbal supplements vs. alcohol use. - Further recommendations to follow based on results of above Patient seen and examined by Dr. Akbar and myself and this note is written on his behalf (Anamika Emmanuel) Physician Comments Patient Seen and examined Agree with above Continue with current supportive care Monitor labs Patient may be discharged from a GI standpoint Follow-up with GI in 2-3 weeks Patient needs to be on a low-salt diet Most likely cause of this admission was a viral gastroenteritis Patient is made aware that she has steatohepatitis and cirrhosis of the liver She is advised to stop alcohol She will need long-term follow-up with GI to follow up on cirrhosis Patient may use Phenergan 12.5 mg every 6 when necessary for nausea Patient may be given dicyclomine 10 mg 3 times a day when necessary for cramping abdominal pain We will sign off (Sharan Akbar MD) Anamika Emmanuel Aug 24, 2016 10:00 Sharan Akbar MD Aug 24, 2016 13:20
[2016-08-24 12:00] VITALS: BP 140/86; PULSE 76; RESP 18; TEMP 97.6; O2SAT 95
[2016-08-24] MEDS ORDERED: DICY10CA12 PO (15:37)
[2016-08-24] MEDS ORDERED: PROM25TA5 PO (15:37)
--- NOTE | 2016-08-24 15:37 | HHI.DCPOC ---
Discharge Care Plan Diagnosis: (1) Cirrhosis of liver (2) Intractable vomiting (3) Transaminitis (4) Elevated liver enzymes (5) Abdominal pain Goals to Promote Your Health * To prevent worsening of your condition and complications * To maintain your health at the optimal level Directions to Meet Your Goals Take your medications as prescribed Follow your dietary instruction Follow activity as directed Keep your appointments as scheduled Take your immunizations and boosters as scheduled If your symptoms worsen call your PCP, if no PCP go to Urgent Care Center or Emergency Room Smoking is Dangerous to Your Health. Avoid second hand smoke Call the 24-hour hour crisis hotline for domestic abuse at [address] MD Aug 24, 2016 15:37
--- NOTE | 2016-08-24 15:39 | HHI.DS ---
Discharge Summary Admission Date Aug 23, 2016 at 05:30 Discharge Date: Aug 24, 2016 Admitting Diagnosis Dehydration, intractable vomiting, elevated liver enzymes (1) Transaminitis ICD Code: R74.0 Diagnosis: Principal (2) Cirrhosis of liver ICD Code: K74.60 Diagnosis: Secondary (3) Abdominal pain ICD Code: R10.9 Diagnosis: Principal (4) Intractable vomiting ICD Code: R11.10 Diagnosis: Principal (5) Diarrhea ICD Code: R19.7 Diagnosis: Principal Procedures none Brief History - From Admission 50-year-old female past medical history of cholelithiasis status post laparoscopic cholecystectomy and ERCP with sphincterotomy in November 2015 now presents with intractable emesis and abdominal pain. Patient stated that yesterday she drank some milk in the morning took her kids to school been started having severe emesis about 20 times yesterday. She stated that emesis looked bloody. She then developed abdominal pain. Patient also had diarrhea for the last few weeks. About 3-4 loose stools a day. Denies any recent use of antibiotics. She also states she had a fever on Friday of 102. She has been afebrile since then. Patient also stated that she had a get a stent removed 3 months from the procedure but she was unable to due to insurance denial. Patient stated that she drinks about 3 glasses of wine 2 times a week. She denies any tremors, nausea vomiting or any withdrawal symptoms that she does not drink. Patient also stated that she has a migraine headache. She stated that this is her usual migraine headache. Patient stated Aleve usually resolves the headache. CBC/BMP: 08/24/16 0705 08/24/16 0705 Significant Findings Laboratory Tests Test 08/23/16 08/24/16 01:45 07:05 White Blood Count 3.9 TH/MM3 (4.0-11.0) Hemoglobin 16.4 GM/DL (11.6-15.3) Hematocrit 46.2 % (35.0-46.0) Neutrophils (%) (Auto) 75.0 % (16.0-70.0) Lymphocytes # (Auto) 0.9 TH/MM3 (1.0-4.8) Prothrombin Time 14.7 SEC (9.8-11.6) Activated Partial 32.4 SEC Thromboplast Time (24.3-30.1) Sodium Level 135 MEQ/L (136-145) Chloride Level 97 MEQ/L (98-107) Blood Urea Nitrogen 23 MG/DL (7-18) Estimat Glomerular Filtration 68 ML/MIN (>89) 65 ML/MIN (>89) Rate Random Glucose 141 MG/DL (74-106) Total Bilirubin 1.9 MG/DL 4.9 MG/DL (0.2-1.0) (0.2-1.0) Aspartate Amino Transf 629 U/L (15-37) 291 U/L (15-37) (AST/SGOT) Alanine Aminotransferase 345 U/L (10-53) 207 U/L (10-53) (ALT/SGPT) Alkaline Phosphatase 250 U/L 200 U/L (45-117) (45-117) Acetaminophen Level LESS THAN 2.0 MCG/ML (10.0-30.0) Calcium Level 8.2 MG/DL (8.5-10.1) Imaging Last Impressions Abdomen/Pelvis CT 08/23/16 0103 Signed Impressions: Service Date/Time: Tuesday, August 23, 2016 04:30 - CONCLUSION: No acute abnormality demonstrated. Cholecystectomy since the prior CT without evidence of an acute complication. Slight fatty infiltration of the liver again seen. Segundo Montiel MD PE at Discharge GENERAL: in NAD SKIN: Warm and dry. HEAD: Normocephalic. EYES: No scleral icterus. No injection or drainage. NECK: Supple, trachea midline. No JVD or lymphadenopathy. CARDIOVASCULAR: Regular rate and rhythm without murmurs, gallops, or rubs. RESPIRATORY: Breath sounds equal bilaterally. No accessory muscle use. GASTROINTESTINAL: Abdomen soft, non-tender, nondistended. MUSCULOSKELETAL: No cyanosis, or edema. BACK: Nontender without obvious deformity. No CVA tenderness. Pt update on day of discharge patient had no complaints. emesis, abdominal pain and diarrhea resolve. patient asking for her ativan. Hospital Course 50-year-old female history of cholelithiasis who presented with emesis and abdominal pain Intractable emesis/abdominal pain -In a patient with a history of cholelithiasis status post laparoscopic cholecystectomy and ERCP with sphincterotomy -LFTs are elevated. Lipase is within normal limits. CT scan of the abdomen and pelvis does not show any acute process. - GI consulted and thought due to alcohol us or due to herbal use. recommend cessation and if want to start any herbs to d/w GI first. -LFT improved. -patient given supportive care with IVFs and antiemetics and did well -patient to f/u with GI in 2-3 weeks. -she was d/c on dicyclomine and Phenergan as recommended by Joseph. Elevated liver enzymes -See treatment as above. History of cirrhosis -Stable -avoid alcohol. patient understood. Pt Condition on Discharge: Good Discharge Disposition: Discharge Home Discharge Time: > 30 minutes Discharge Instructions DIET: Follow Instructions for: As Tolerated, No Restrictions, Low Sodium Diet Activities you can perform: Regular-No Restrictions Follow up Referrals: Gastroenterology - 2 Weeks with Sharan Akbar MD PCP Follow-up - 1 Week New Medications: Dicyclomine (Dicyclomine) 10 Mg Cap 10 MG PO TID PRN ABDOMINAL CRAMPING #21 Ref 0 CAP Promethazine (Phenergan) 25 Mg Tab 12.5 MG PO Q6HR Nausea/Vomiting #10 Ref 0 TAB Continued Medications: Alprazolam (Alprazolam) 1 Mg Tab 1 MG PO BID PRN ANXIETY Ref 0 TAB Pantoprazole (Protonix) 40 Mg Tab 40 MG PO DAILY Gerd #30 Ref 0 TAB Sertraline (Zoloft) 100 Mg Tab 100 MG PO DAILY #[address] MD Aug 24, 2016 15:39
[2016-08-24 16:00] VITALS: BP 136/82; PULSE 79; RESP 18; TEMP 97.8; O2SAT 95
== END 2016-08-24 17:53 | disposition home or self-care (01) ==
LOC: NEPE 23:21 → NEDA 08-23 05:30 → NEPHCDU 08-23 12:49
PROVIDERS: ADMIT Family Medicine; ATTEND Family Medicine
DX: R11.2 Nausea with vomiting, unspecified (principal); E86.0 Dehydration; R19.7 Diarrhea, unspecified; R74.0 Nonspecific elevation of levels of transaminase and lactic acid dehydrogenase [LDH]; R74.8 Abnormal levels of other serum enzymes; R00.0 Tachycardia, unspecified; K76.0 Fatty (change of) liver, not elsewhere classified; R10.13 Epigastric pain; F10.230 Alcohol dependence with withdrawal, uncomplicated; K92.0 Hematemesis; F41.9 Anxiety disorder, unspecified; F32.9 Major depressive disorder, single episode, unspecified; K21.9 Gastro-esophageal reflux disease without esophagitis; K74.60 Unspecified cirrhosis of liver; K75.81 Nonalcoholic steatohepatitis (NASH); G43.909 Migraine, unspecified, not intractable, without status migrainosus; Z87.898 Personal history of other specified conditions; Z86.69 Personal history of other diseases of the nervous system and sense organs; Z80.0 Family history of malignant neoplasm of digestive organs; Z90.49 Acquired absence of other specified parts of digestive tract; Z80.8 Family history of malignant neoplasm of other organs or systems; Z79.899 Other long term (current) drug therapy
CPT/HCPCS: 74177; 80053; 80307; 81001; 83690; 84703; 85025; 85027; 85610; 85730; 93005; 96361; 96365; 96375; 99285; C9113; G0378; J1885; J2060; J2270; J2405; J2765; J7030; Q9967

== ENCOUNTER 2017-01-08 13:52 | Emergency (ER) | payer MEDICAID ==
[~2017-01-08] VITALS: Ht 162.6 cm; Wt 70.0 kg
[~2017-01-08 13:52] MED LIST changes: -CEPH-460 PO; +DICY10CA12 PO; +PROM25TA5 PO; -ULTR50TA5 PO
[2017-01-08 13:58] VITALS: BP 122/85; PULSE 104; RESP 24; TEMP 98.3; O2SAT 92
[2017-01-08] MEDS ORDERED: XANA2TAB2 PO (14:58)
--- NOTE | 2017-01-08 15:00 | PD ---
HPI Chief Complaint: Psychiatric Symptoms Time Seen by Provider: 14:36 Travel History International Travel<30 days: No Contact w/Intl Traveler<30days: No Traveled to known affect area: No History of Present Illness HPI This is a 51-year-old female who has a history of depression and alcohol dependence who presents to the emergency department with increasing depression and tearfulness. Her friend states she said she is having some suicidal thoughts. She's been drinking alcohol heavily. She also reports left upper quadrant abdominal pain, constant, moderate severity, stabbing with no associated vomiting. PFSH Past Medical History Asthma: No Blood Disorders: No Anxiety: Yes Depression: Yes Heart Rhythm Problems: No Cancer: No Cardiovascular Problems: No High Cholesterol: No Chemotherapy: No Chest Pain: No Congestive Heart Failure: No COPD: No Diabetes: No Diminished Hearing: No Endocrine: No Genitourinary: No Immune Disorder: No Musculoskeletal: No Neurologic: No Psychiatric: Yes Reproductive: No Respiratory: No Immunizations Current: No Thyroid Disease: No ?: Not Menopausal: Yes : 2 Para: 2 Miscarriage: 0 : 0 Past Surgical History Abdominal Surgery: Yes (hernia) Appendectomy: Yes Cholecystectomy: Yes Other Surgery: Yes (BREAST IMPLANTS) Social History Alcohol Use: Yes (vodka) Tobacco Use: No Substance Use: No (uses xanax when can get from friend) Allergies-Medications (Allergen,Severity, Reaction): Coded Allergies: amoxicillin (Unverified Allergy, Severe, HIVES, 01/08/17) Reported Meds & Prescriptions Reported Meds & Active Scripts Active Ibuprofen 400 Mg Tab 400 Mg PO Q8H PRN Reported Xanax (Alprazolam) 2 Mg Tab 2 Mg PO BID PRN Review of Systems Except as stated in HPI: all other systems reviewed are Neg Physical Exam Narrative GENERAL: disheveled SKIN: Focused skin assessment warm and dry. HEAD: Atraumatic. Normocephalic. EYES: Pupils equal and round. No injection or drainage. ENT: Moist mucous membranes NECK: Trachea midline. CARDIOVASCULAR: Regular rate and rhythm. No murmur appreciated. RESPIRATORY: Clear to auscultation. Breath sounds equal bilaterally. GASTROINTESTINAL: Abdomen soft,tender to palpation in the left upper quadrant with no rebound/guarding MUSCULOSKELETAL: No obvious deformities. NEUROLOGICAL: Awake and alert. No obvious cranial nerve deficits. Moving all extremities. PSYCHIATRIC: Tearful, depressed mood, not reporting suicidal ideation Data Data Last Documented VS Vital Signs Date Time Temp Pulse Resp B/P (MAP) Pulse Ox O2 Delivery O2 Flow Rate FiO2 01/08/17 22:04 01/08/17 19:12 80 14 96 Room Air 01/08/17 13:58 98.3 Orders Orders Complete Blood Count With Diff (01/08/17 14:04) Comprehensive Metabolic Panel (01/08/17 14:04) Urinalysis - C+S If Indicated (01/08/17 14:04) Drug Screen, Random Urine (01/08/17 14:04) Alcohol (Ethanol) (01/08/17 14:04) Lipase (01/08/17 14:42) Alprazolam (Xanax) (01/08/17 16:15) Ct Abd/Pel W Iv Contrast(Rout) (01/08/17 ) Ketorolac Inj (Toradol Inj) (01/08/17 18:15) Iohexol 350 Inj (Omnipaque 350 Inj) (01/08/17 19:03) Ondansetron Inj (Zofran Inj) (01/08/17 19:30) Us Abdomen Gallbladder (01/08/17 ) Morphine Inj (Morphine Inj) (01/08/17 20:15) Tylenol (Acetaminophen) (01/08/17 20:37) Mandatory Outpatient Referral (01/08/17 21:28) Labs Laboratory Tests Test 01/08/17 15:00 01/08/17 16:07 01/08/17 16:58 White Blood Count 5.1 TH/MM3 Red Blood Count 4.71 MIL/MM3 Hemoglobin 14.9 GM/DL Hematocrit 44.7 % Mean Corpuscular Volume 94.9 FL Mean Corpuscular Hemoglobin 31.6 PG Mean Corpuscular Hemoglobin Concent 33.3 % Red Cell Distribution Width 16.2 % Platelet Count 117 TH/MM3 Mean Platelet Volume 9.8 FL Neutrophils (%) (Auto) 46.2 % Lymphocytes (%) (Auto) 47.4 % Monocytes (%) (Auto) 4.2 % Eosinophils (%) (Auto) 1.5 % Basophils (%) (Auto) 0.7 % Neutrophils # (Auto) 2.4 TH/MM3 Lymphocytes # (Auto) 2.4 TH/MM3 Monocytes # (Auto) 0.2 TH/MM3 Eosinophils # (Auto) 0.1 TH/MM3 Basophils # (Auto) 0.0 TH/MM3 CBC Comment DIFF FINAL Differential Comment Lipase 79 U/L Blood Urea Nitrogen 15 MG/DL Creatinine 0.88 MG/DL Random Glucose 90 MG/DL Total Protein 6.8 GM/DL Albumin 3.3 GM/DL Calcium Level 8.0 MG/DL Alkaline Phosphatase 283 U/L Aspartate Amino Transf (AST/SGOT) 571 U/L Alanine Aminotransferase (ALT/SGPT) 215 U/L Total Bilirubin 5.1 MG/DL Sodium Level 137 MEQ/L Potassium Level 4.1 MEQ/L Chloride Level 101 MEQ/L Carbon Dioxide Level 25.2 MEQ/L Anion Gap 11 MEQ/L Estimat Glomerular Filtration Rate 68 ML/MIN Acetaminophen Level LESS THAN 2.0 MCG/ML Ethyl Alcohol Level 299 MG/DL Urine Color LIGHT-YELLOW Urine Turbidity CLEAR Urine pH 6.0 Urine Specific [place] 1.003 Urine Protein NEG mg/dL Urine Glucose (UA) NEG mg/dL Urine Ketones NEG mg/dL Urine Occult Blood NEG Urine Nitrite NEG Urine Bilirubin NEG Urine Urobilinogen LESS THAN 2.0 MG/DL Urine Leukocyte Esterase NEG Urine RBC LESS THAN 1 /hpf Urine WBC LESS THAN 1 /hpf Urine Squamous Epithelial Cells <1 /hpf Microscopic Urinalysis Comment CULT NOT INDICATED Urine Opiates Screen NEG Urine Barbiturates Screen NEG Urine Amphetamines Screen NEG Urine Benzodiazepines Screen NEG Urine Cocaine Screen NEG Urine Cannabinoids Screen NEG MDM Medical Decision Making Medical Screen Exam Complete: Yes Emergency Medical Condition: Yes Differential Diagnosis Alcohol-induced mood disorder, gastritis, pancreatitis, depression Narrative Course This is a 51-year-old female who has a history of alcoholism who presents to the emergency department increasing depression as well as left-sided abdominal pain and nausea. Labs will be obtained. I'll think patient meets [place] act criteria and I suspect a lot of her current depression is in the setting of intoxication. She should be reassessed when clinically sober. Case was signed out to Dr. Harper. Scripts Ibuprofen (Ibuprofen) 400 Mg Tab 400 MG PO Q8H Y for PAIN SCALE 1 TO 4, #20 TAB 0 Refills Prov: Iesha Harper DO 01/08/17 Lisa Li MD Jan 08, 2017 15:00
[2017-01-08 15:58] LABS: AUTOMATED NEUTROPHIL # 2.4 TH/MM3 (1.8-7.7); BASOPHIL % 0.7 % (0.0-2.0); EOSINOPHIL # 0.1 TH/MM3 (0-0.4); EOSINOPHIL % 1.5 % (0.0-4.0); HEMATOCRIT 44.7 % (35.0-46.0); HEMO FLAGS DIFF FINAL; LYMPH % 47.4 % (9.0-44.0); LYMPHOCYTE # 2.4 TH/MM3 (1.0-4.8); MEAN CELL VOLUME 94.9 FL (80.0-100.0); MEAN CORPUSCULAR HEMOGLOBIN 31.6 PG (27.0-34.0); MEAN CORPUSCULAR HGB CONC 33.3 % (32.0-36.0); MONO % 4.2 % (0.0-8.0); NEUT % 46.2 % (16.0-70.0); PLATELET COUNT 117 TH/MM3 (150-450); RED BLOOD COUNT 4.71 MIL/MM3 (4.00-5.30); RED CELL DISTRIBUTION WIDTH 16.2 % (11.6-17.2); WHITE BLOOD COUNT 5.1 TH/MM3 (4.0-11.0)
[2017-01-08] MEDS ORDERED: ALPRAZolam 1 MG TAB PO ONE (16:15)
[2017-01-08 17:12] LABS: ALT (GPT) 215 U/L (10-53); ANION GAP 11 MEQ/L (5-15); AST (GOT) 571 U/L (15-37); BICARBONATE 25.2 MEQ/L (21.0-32.0); BLOOD UREA NITROGEN 15 MG/DL (7-18); CHLORIDE 101 MEQ/L (98-107); GLOMERULAR FILTRATION RATE 68 ML/MIN (>89); POTASSIUM 4.1 MEQ/L (3.5-5.1); SODIUM (NA) 137 MEQ/L (136-145)
[2017-01-08 17:25] LABS: BLOOD, URINE NEG (NEG); COMMENT (UR) CULT NOT INDICATED; CULTURE IF INDICATED CULT NOT INDICATED; GLUCOSE,URINE NEG (NEG); KETONE, URINE NEG (NEG); NITRITE,URINE NEG (NEG); SQUAMOUS EPITHELIAL CELL URINE <1 /hpf (0-5); URINE COLOR LIGHT-YELLOW (YELLW/STRAW)
[2017-01-08 17:27] LABS: ALKALINE PHOSPHATASE 283 U/L (45-117); TOTAL BILIRUBIN ADULT 5.1 MG/DL (0.2-1.0)
[2017-01-08 17:29] LABS: ALCOHOL 299 MG/DL (0-5)
--- NOTE | 2017-01-08 18:05 | PD ---
Physical Exam Narrative Received sign out from previous team to follow up labs and reevaluate. 51yo F with PMH of depression and alcohol abuse here with depression. Pt informed me that she has not been feeling well and has abdominal pain for a while. Pain is mostly in left lower abdomen but she does have some tenderness to palpation in epigastric region. States she has been nauseous and vomiting and has fever at home but no fever here. Pt drinks daily. Labs reviewed, no leukocytosis. Lipase normal. Elevated total bilirubin at 5.1 which she had in 07/2016. However, AST/ALT is more elevated than before at 571/215 although this may be related to alcohol use. Upon review of records, she is s/p lap cholecystectomy and ERCP 11/2015. Pt given toradol and zofran but still with pain. She has not vomited here. Tolerating PO here. Will give another dose of pain medication and reevaluate. Pt reevaluated at bedside after morphine and pain has improved. Pt is well appearing and on her phone. Abdomen is soft, NT/ ND. CTa/p showed enlarged liver with increased fatty infiltrate. Pt has had elevated liver enzyme evaluated by GI extensively in the past. Pt needs to stop drinking alcohol and follow up with GI as an outpatient. US gallbladder ordered to further evaluate common bile duct and there was no stone or mass. Acetaminophen less than 2. Blood alcohol is 299. Pt denies any suicidal or homicidal ideation and states she has a psychiatrist. She said that she wants to go home and follow up with her psychiatrist when I said I would not be giving her more pain medication. She is AAOx3 and not in withdrawal currently. Will do mandatory referral for GI but pt has medicaid and may need to call her insurance instead. Return precautions given. Pt is not interested in [facility] and is not under [employer] Act. Data Data Last Documented VS Vital Signs Date Time Temp Pulse Resp B/P (MAP) Pulse Ox O2 Delivery O2 Flow Rate FiO2 01/08/17 19:12 80 14 115/72 (86) 96 Room Air 01/08/17 13:58 98.3 Orders Orders Complete Blood Count With Diff (01/08/17 14:04) Comprehensive Metabolic Panel (01/08/17 14:04) Urinalysis - C+S If Indicated (01/08/17 14:04) Psych Screen (01/08/17 14:04) Drug Screen, Random Urine (01/08/17 14:04) Alcohol (Ethanol) (01/08/17 14:04) Lipase (01/08/17 14:42) Alprazolam (Xanax) (01/08/17 16:15) Ct Abd/Pel W Iv Contrast(Rout) (01/08/17 ) Ketorolac Inj (Toradol Inj) (01/08/17 18:15) Iohexol 350 Inj (Omnipaque 350 Inj) (01/08/17 19:03) Ondansetron Inj (Zofran Inj) (01/08/17 19:30) Us Abdomen Gallbladder (01/08/17 ) Morphine Inj (Morphine Inj) (01/08/17 20:15) Tylenol (Acetaminophen) (01/08/17 20:37) Labs Laboratory Tests Test 01/08/17 15:00 01/08/17 16:07 01/08/17 16:58 White Blood Count 5.1 TH/MM3 Red Blood Count 4.71 MIL/MM3 Hemoglobin 14.9 GM/DL Hematocrit 44.7 % Mean Corpuscular Volume 94.9 FL Mean Corpuscular Hemoglobin 31.6 PG Mean Corpuscular Hemoglobin Concent 33.3 % Red Cell Distribution Width 16.2 % Platelet Count 117 TH/MM3 Mean Platelet Volume 9.8 FL Neutrophils (%) (Auto) 46.2 % Lymphocytes (%) (Auto) 47.4 % Monocytes (%) (Auto) 4.2 % Eosinophils (%) (Auto) 1.5 % Basophils (%) (Auto) 0.7 % Neutrophils # (Auto) 2.4 TH/MM3 Lymphocytes # (Auto) 2.4 TH/MM3 Monocytes # (Auto) 0.2 TH/MM3 Eosinophils # (Auto) 0.1 TH/MM3 Basophils # (Auto) 0.0 TH/MM3 CBC Comment DIFF FINAL Differential Comment Lipase 79 U/L Blood Urea Nitrogen 15 MG/DL Creatinine 0.88 MG/DL Random Glucose 90 MG/DL Total Protein 6.8 GM/DL Albumin 3.3 GM/DL Calcium Level 8.0 MG/DL Alkaline Phosphatase 283 U/L Aspartate Amino Transf (AST/SGOT) 571 U/L Alanine Aminotransferase (ALT/SGPT) 215 U/L Total Bilirubin 5.1 MG/DL Sodium Level 137 MEQ/L Potassium Level 4.1 MEQ/L Chloride Level 101 MEQ/L Carbon Dioxide Level 25.2 MEQ/L Anion Gap 11 MEQ/L Estimat Glomerular Filtration Rate 68 ML/MIN Acetaminophen Level LESS THAN 2.0 MCG/ML Ethyl Alcohol Level 299 MG/DL Urine Color LIGHT-YELLOW Urine Turbidity CLEAR Urine pH 6.0 Urine Specific [place] 1.003 Urine Protein NEG mg/dL Urine Glucose (UA) NEG mg/dL Urine Ketones NEG mg/dL Urine Occult Blood NEG Urine Nitrite NEG Urine Bilirubin NEG Urine Urobilinogen LESS THAN 2.0 MG/DL Urine Leukocyte Esterase NEG Urine RBC LESS THAN 1 /hpf Urine WBC LESS THAN 1 /hpf Urine Squamous Epithelial Cells <1 /hpf Microscopic Urinalysis Comment CULT NOT INDICATED Urine Opiates Screen NEG Urine Barbiturates Screen NEG Urine Amphetamines Screen NEG Urine Benzodiazepines Screen NEG Urine Cocaine Screen NEG Urine Cannabinoids Screen NEG MDM Supervised Visit with FLACO: No Diagnosis Primary Impression: Alcohol intoxication Qualified Codes: F10.920 - Alcohol use, unspecified with intoxication, uncomplicated Additional Impression: Elevated liver enzymes Referrals: Pat Block MD call for appointment Elevated liver enzymes Patient Instructions: General Instructions Departure Forms: Tests/Procedures Additional Instruction: Please follow up with GI as soon as possible. Return to the ED if symptoms worsen. Med/Other Pt SpecificInfo: Prescription(s) given Scripts Ibuprofen (Ibuprofen) 400 Mg Tab 400 MG PO Q8H Y for PAIN SCALE 1 TO 4, #20 TAB 0 Refills Prov: Iesha Harper 01/08/17 Disposition: 01 DISCHARGE HOME Condition: Stable HarperFrances katzrenetta DOYLE Jan 08, 2017 18:05
[2017-01-08 18:12] VITALS: BP 117/68; PULSE 72; RESP 16; O2SAT 97
[2017-01-08] MEDS ORDERED: KETOROLAC TROMETHAMINE 30 MG/ML (IVP) VIAL IV PUSH ONE (18:15)
[2017-01-08] MEDS ORDERED: IOHEXOL 350 MG/ML 10 ML VIAL (for RAD DIAG) IVCONTRAST ONE (19:03)
[2017-01-08 19:12] VITALS: BP 115/72; PULSE 80; RESP 14; O2SAT 96
--- NOTE | 2017-01-08 19:15 | RADRPT ---
EXAM DATE/TIME: 01/08/2017 18:58 [facility] COMPARISON: CT ABDOMEN & PELVIS W CONTRAST, August 23, 2016, 4:30. INDICATIONS : Left upper quadrant pain. IV CONTRAST: 85 cc Omnipaque 350 (iohexol) IV ORAL CONTRAST: No oral contrast ingested. RADIATION DOSE: 10.99 CTDIvol (mGy) MEDICAL HISTORY : Gastroesophageal reflux disease. Hernia. SURGICAL HISTORY : Appendectomy. Cholecystectomy.Hysterectomy. ENCOUNTER: Initial ACUITY: 2 weeks PAIN SCALE: 7/10 LOCATION: Left upper quadrant TECHNIQUE: Volumetric scanning of the abdomen and pelvis was performed. Using automated exposure control and ad justment of the mA and/or kV according to patient size, radiation dose was kept as low as reasonably achievable to obtain optimal diagnostic quality images. DICOM format image data is available electro nically for review and comparison. FINDINGS: LOWER LUNGS: The visualized lower lungs are clear. LIVER: Leak fatty infiltrated, worse. Liver is approximately 21.3 cm craniocaudal. Previous cholecystectomy. No ductal dilatation. SPLEEN: Normal size without lesion. PANCREAS: Within normal limits. KIDNEYS: Normal in size and shape. There is no mass, stone or hydronephrosis. ADRENAL GLANDS: Within normal limits. VASCULAR: There is no aortic aneurysm. BOWEL/MESENTERY: The stomach, small bowel, and colon demonstrate no acute abnormality. There is no free intraperitone al air or fluid. The appendix is well-visualized, normal. ABDOMINAL WALL: Within normal limits. RETROPERITONEUM: There is no lymphadenopathy. BLADDER: No wall thickening or mass. REPRODUCTIVE: Within normal limits. INGUINAL: There is no lymphadenopathy or hernia. MUSCULOSKELETAL: No acute bony abnormality demonstrated. CONCLUSION: Enlarged liver with increased fatty infiltration. CT of the abdomen and pelvis is otherwise within no rmal limits. Segundo Montiel MD on January 08, 2017 at 19:10 Board Certified Radiologist. This report was verified electronically.
[2017-01-08] MEDS ORDERED: ONDANSETRON HCL 4 MG/2 ML VIAL IV PUSH ONE (19:30)
[2017-01-08] MEDS ORDERED: MORPHINE SULFATE 2 MG/ML INJ IV PUSH ONE (20:00)
[2017-01-08] MEDS ORDERED: MORPHINE SULFATE 4 MG/ML INJ IV PUSH ONE (20:15)
--- NOTE | 2017-01-08 20:47 | RADRPT ---
EXAM DATE/TIME: 01/08/2017 20:16 [facility] COMPARISON: CT ABDOMEN & PELVIS W CONTRAST, January 08, 2017, 18:58. US ABDOMEN - LIVER, January 31, 2016, 3:2 4. INDICATIONS : Right upper quadrant pain. MEDICAL HISTORY : Depression. Anxiety. MRSA. SURGICAL HISTORY : Cholecystectomy. Breast implants. ENCOUNTER: Subsequent ACUITY: 1 day PAIN SCORE: 7/10 LOCATION: Right upper quadrant MEASUREMENTS: LIVER: 18.1 cm length COMMON DUCT: 4 mm RIGHT KIDNEY: 10.5 x 4.2 x 4.4 cm FINDINGS: LIVER: Enlarged and fatty infiltrated. No focal hepatic lesion. No ductal dilatation. There is normal flow v elocity and direction in the main portal vein. COMMON DUCT: No intraluminal mass or stone visualized. GALLBLADDER: Previous cholecystectomy. PANCREAS: The visualized portions are within normal limits. RIGHT KIDNEY: No evidence of hydronephrosis, stone, or mass. CONCLUSION: Enlarged and fatty liver. Otherwise normal right upper quadrant ultrasound. Previous cholecystectomy. Segundo Montiel MD on January 08, 2017 at 20:45 Board Certified Radiologist. This report was verified electronically.
[2017-01-08] MEDS ORDERED: IBUP400T20 PO (21:28)
== END 2017-01-08 22:09 | disposition home or self-care (01) ==
LOC: NEPD 13:52
DX: F10.129 Alcohol abuse with intoxication, unspecified (principal); R74.8 Abnormal levels of other serum enzymes; R10.12 Left upper quadrant pain; F32.9 Major depressive disorder, single episode, unspecified; Y90.8 Blood alcohol level of 240 mg/100 ml or more
CPT/HCPCS: 74177; 76705; 80053; 80307; 81001; 83690; 85025; 96374; 96375; 99285; J1885; J2270; J2405; Q9967

== ENCOUNTER 2017-03-25 20:39 | Emergency (ER) | payer MEDICAID, OTHER ==
[~2017-03-25] VITALS: Ht 162.6 cm; Wt 80.0 kg
[~2017-03-25 20:39] MED LIST changes: -ALPR1TAB3 PO; -DICY10CA12 PO; +IBUP1TAB5 PO; -PROM25TA5 PO; -PROT40TA PO; +XANA2TAB2 PO; -ZOLO100T PO
[2017-03-25 22:05] LABS: AUTOMATED NEUTROPHIL # 3.5 TH/MM3 (1.8-7.7); BASOPHIL # 0.1 TH/MM3 (0-0.2); BASOPHIL % 0.9 % (0.0-2.0); EOSINOPHIL # 0.1 TH/MM3 (0-0.4); EOSINOPHIL % 1.5 % (0.0-4.0); HEMATOCRIT 45.7 % (35.0-46.0); HEMO FLAGS DIFF FINAL; LYMPH % 45.6 % (9.0-44.0); LYMPHOCYTE # 3.3 TH/MM3 (1.0-4.8); MEAN CELL VOLUME 96.1 FL (80.0-100.0); MEAN CORPUSCULAR HGB CONC 34.3 % (32.0-36.0); MONO % 3.8 % (0.0-8.0); NEUT % 48.2 % (16.0-70.0); PLATELET COUNT 158 TH/MM3 (150-450); RED BLOOD COUNT 4.76 MIL/MM3 (4.00-5.30); RED CELL DISTRIBUTION WIDTH 13.9 % (11.6-17.2); WHITE BLOOD COUNT 7.3 TH/MM3 (4.0-11.0)
[2017-03-25 22:33] LABS: ALKALINE PHOSPHATASE 278 U/L (45-117)
[2017-03-25 22:41] LABS: ALT (GPT) 204 U/L (10-53); ANION GAP 8 MEQ/L (5-15); AST (GOT) 198 U/L (15-37); BICARBONATE 26.6 MEQ/L (21.0-32.0); BLOOD UREA NITROGEN 17 MG/DL (7-18); CHLORIDE 103 MEQ/L (98-107); GLOMERULAR FILTRATION RATE 62 ML/MIN (>89); SODIUM (NA) 138 MEQ/L (136-145)
[2017-03-25 22:44] LABS: POTASSIUM 4.1 MEQ/L (3.5-5.1)
--- NOTE | 2017-03-26 03:00 | PD ---
HPI Chief Complaint: Psychiatric Symptoms Time Seen by Provider: 02:41 Travel History International Travel<30 days: No Contact w/Intl Traveler<30days: No Traveled to known affect area: No History of Present Illness HPI 51-year-old white female presents to emergency department under [place] act by PD. The patient allegedly had just purchased a new handgun. She had made suicidal statements to family members and discharged again 3 times. The patient was found in her car with a loaded handgun by PD. The patient has been drinking heavily. Patient has a history of alcoholism. She states that she is going through divorce with her now for 7 years and has not final as yet. She just this week from her boyfriend of 6-1/2 years. She also states that she allegedly has taken up to 8 doses of Xanax today. She denies any toxic ingestions. She denies any homicidal ideation. She merely states that she's been under a lot of stress and feeling increasingly depressed. She denies the alleged suicidal ideation. PFSH Past Medical History Narrative Medical Guarding, depression, alcoholism, alcoholic hepatitis. No history of viral hepatitis Asthma: No Blood Disorders: No Anxiety: Yes Depression: Yes Heart Rhythm Problems: No Cancer: No Cardiovascular Problems: No High Cholesterol: No Chemotherapy: No Chest Pain: No Congestive Heart Failure: No COPD: No Diabetes: No Diminished Hearing: No Endocrine: No Gastrointestinal Disorders: Yes (FATTY LIVER AND GALLSTONES) Genitourinary: No Hepatitis: Yes (HEP C) Immune Disorder: No Musculoskeletal: No Neurologic: No Psychiatric: Yes Reproductive: No Respiratory: No Immunizations Current: No Thyroid Disease: No Tetanus Vaccination: Unknown ?: Not Menopausal: Yes : 2 Para: 2 Miscarriage: 0 : 0 Past Surgical History Abdominal Surgery: Yes (hernia) Appendectomy: Yes Cholecystectomy: Yes Other Surgery: Yes (BREAST IMPLANTS) Social History Alcohol Use: Yes (vodka) Tobacco Use: No Substance Use: Yes (alcohol) Allergies-Medications (Allergen,Severity, Reaction): Coded Allergies: amoxicillin (Unverified Allergy, Severe, HIVES, 03/25/17) Reported Meds & Prescriptions Reported Meds & Active Scripts Active Ibuprofen 400 Mg Tab 400 Mg PO Q8H PRN Reported Xanax (Alprazolam) 2 Mg Tab 2 Mg PO BID PRN Review of Systems General / Constitutional: No: Fever Eyes: No: Visual changes HENT: No: Headaches Cardiovascular: No: Chest Pain or Discomfort Respiratory: No: Shortness of Breath Gastrointestinal: No: Abdominal Pain Genitourinary: No: Dysuria Musculoskeletal: No: Pain Skin: No Rash Neurologic: No: Weakness Psychiatric: Positive: Anxiety, Depression, Mood Disorder, Substance Abuse, No : Suicidal Ideations, Disorder of Thought, Homicidal Ideation Endocrine: No: Polydipsia Hematologic/Lymphatic: No: Easy Bruising Physical Exam Narrative GENERAL: Well-nourished, well-developed patient. Appears intoxicated. SKIN: Warm and dry. HEAD: Normocephalic and atraumatic. EYES: No scleral icterus. No injection or drainage. ENT: No nasal drainage noted. Mucous membranes pink. Airway patent. NECK: Supple, trachea midline. Moves head freely without obvious discomfort. CARDIOVASCULAR: Regular rate and rhythm without murmurs, gallops, or rubs. RESPIRATORY: Breath sounds equal bilaterally. No accessory muscle use. GASTROINTESTINAL: Abdomen soft, non-tender, nondistended. EXTREMITIES: No cyanosis or edema. BACK: Nontender without obvious deformity. No CVA tenderness. NEURO: Patient is alert and oriented. no sensorimotor deficits. Nonfocal. Normal speech. PSYCH: No delusions. No auditory or visual hallucinations. Data Data Orders Orders Psych Screen (03/25/17 21:42) Complete Blood Count With Diff (03/25/17 21:46) Comprehensive Metabolic Panel (03/25/17 21:46) Drug Screen, Random Urine (03/25/17 21:46) Alcohol (Ethanol) (03/25/17 22:36) Labs Laboratory Tests Test 03/25/17 21:45 03/25/17 21:50 Urine Opiates Screen NEG Urine Barbiturates Screen NEG Urine Amphetamines Screen NEG Urine Benzodiazepines Screen NEG Urine Cocaine Screen NEG Urine Cannabinoids Screen NEG White Blood Count 7.3 TH/MM3 Red Blood Count 4.76 MIL/MM3 Hemoglobin 15.7 GM/DL Hematocrit 45.7 % Mean Corpuscular Volume 96.1 FL Mean Corpuscular Hemoglobin 33.0 PG Mean Corpuscular Hemoglobin Concent 34.3 % Red Cell Distribution Width 13.9 % Platelet Count 158 TH/MM3 Mean Platelet Volume 8.5 FL Neutrophils (%) (Auto) 48.2 % Lymphocytes (%) (Auto) 45.6 % Monocytes (%) (Auto) 3.8 % Eosinophils (%) (Auto) 1.5 % Basophils (%) (Auto) 0.9 % Neutrophils # (Auto) 3.5 TH/MM3 Lymphocytes # (Auto) 3.3 TH/MM3 Monocytes # (Auto) 0.3 TH/MM3 Eosinophils # (Auto) 0.1 TH/MM3 Basophils # (Auto) 0.1 TH/MM3 CBC Comment DIFF FINAL Differential Comment Blood Urea Nitrogen 17 MG/DL Creatinine 0.96 MG/DL Random Glucose 144 MG/DL Total Protein 8.2 GM/DL Albumin 4.0 GM/DL Calcium Level 8.3 MG/DL Alkaline Phosphatase 278 U/L Aspartate Amino Transf (AST/SGOT) 198 U/L Alanine Aminotransferase (ALT/SGPT) 204 U/L Total Bilirubin 1.0 MG/DL Sodium Level 138 MEQ/L Potassium Level 4.1 MEQ/L Chloride Level 103 MEQ/L Carbon Dioxide Level 26.6 MEQ/L Anion Gap 8 MEQ/L Estimat Glomerular Filtration Rate 62 ML/MIN Ethyl Alcohol Level 318 MG/DL MDM Medical Decision Making Medical Screen Exam Complete: Yes Emergency Medical Condition: Yes Medical Record Reviewed: Yes Interpretation(s) Laboratory Tests Test 03/25/17 21:45 03/25/17 21:50 Urine Opiates Screen NEG Urine Barbiturates Screen NEG Urine Amphetamines Screen NEG Urine Benzodiazepines Screen NEG Urine Cocaine Screen NEG Urine Cannabinoids Screen NEG White Blood Count 7.3 TH/MM3 Red Blood Count 4.76 MIL/MM3 Hemoglobin 15.7 GM/DL Hematocrit 45.7 % Mean Corpuscular Volume 96.1 FL Mean Corpuscular Hemoglobin 33.0 PG Mean Corpuscular Hemoglobin Concent 34.3 % Red Cell Distribution Width 13.9 % Platelet Count 158 TH/MM3 Mean Platelet Volume 8.5 FL Neutrophils (%) (Auto) 48.2 % Lymphocytes (%) (Auto) 45.6 % Monocytes (%) (Auto) 3.8 % Eosinophils (%) (Auto) 1.5 % Basophils (%) (Auto) 0.9 % Neutrophils # (Auto) 3.5 TH/MM3 Lymphocytes # (Auto) 3.3 TH/MM3 Monocytes # (Auto) 0.3 TH/MM3 Eosinophils # (Auto) 0.1 TH/MM3 Basophils # (Auto) 0.1 TH/MM3 CBC Comment DIFF FINAL Differential Comment Blood Urea Nitrogen 17 MG/DL Creatinine 0.96 MG/DL Random Glucose 144 MG/DL Total Protein 8.2 GM/DL Albumin 4.0 GM/DL Calcium Level 8.3 MG/DL Alkaline Phosphatase 278 U/L Aspartate Amino Transf (AST/SGOT) 198 U/L Alanine Aminotransferase (ALT/SGPT) 204 U/L Total Bilirubin 1.0 MG/DL Sodium Level 138 MEQ/L Potassium Level 4.1 MEQ/L Chloride Level 103 MEQ/L Carbon Dioxide Level 26.6 MEQ/L Anion Gap 8 MEQ/L Estimat Glomerular Filtration Rate 62 ML/MIN Ethyl Alcohol Level 318 MG/DL Differential Diagnosis MDM: High Differential diagnoses: Schizophrenia, schizoaffective disorder, bipolar, anxiety, depression, adjustment reaction, mood disorder NOS, ODD, depressive disorder NOS, dementia, dementia with agitation, psychosis NOS, substance induced mood disorder, DMDD, Asperger syndrome, infection,electrolyte abnormality, malingering. Narrative Course Mental health screening discussed with the patient. Psychiatric screen ordered. The patient is been medically cleared. Patient has history of chronic alcohol abuse as well as chronic alcohol abuse hepatitis. This is medical clearance for psychiatric admission, alcohol abuse with alcohol induced mood disorder Diagnosis Primary Impression: Medical clearance for psychiatric admission Additional Impression: Alcohol abuse with alcohol-induced mood disorder Condition: Stable Luciano Kc Mar 26, 2017 03:00
[2017-03-26 06:16] VITALS: BP 105/64; PULSE 79; RESP 18; O2SAT 97
[2017-03-26 10:10] VITALS: BP 112/69; PULSE 88; RESP 18; O2SAT 93
[2017-03-26 10:16] VITALS: BP 112/69; PULSE 88; RESP 18
== END 2017-03-26 13:00 ==
LOC: NEPJ 20:39
DX: Z04.6 Encounter for general psychiatric examination, requested by authority (principal); F10.14 Alcohol abuse with alcohol-induced mood disorder; Y90.8 Blood alcohol level of 240 mg/100 ml or more; F32.9 Major depressive disorder, single episode, unspecified; K70.10 Alcoholic hepatitis without ascites
CPT/HCPCS: 80053; 80307; 85025; 99283

== ENCOUNTER 2017-05-11 10:55 | Emergency (ER) | payer MEDICAID, OTHER ==
[~2017-05-11] VITALS: Ht 165.1 cm; Wt 72.5 kg
[2017-05-11 10:57] VITALS: BP 125/74; PULSE 107; RESP 18; TEMP 98.3; O2SAT 96
--- NOTE | 2017-05-11 11:20 | PD ---
Physical Exam Time Seen by Provider: 11:18 Narrative 51yo F c/o of being really sick for 10 days and has taken Keflex, from an urgent care, and finished 2 days ago. Continued Right side sinus pressure. + coughing and wheezing. Fever 2 days ago 102.7. +nasal congestion , sore throat. Patient seen in triage. VS reviewed. Awaiting bed placement. See next providers note for final patient disposition. Data Data Last Documented VS Vital Signs Date Time Temp Pulse Resp B/P (MAP) Pulse Ox O2 Delivery O2 Flow Rate FiO2 05/11/17 10:57 98.3 107 18 125/74 (91) 96 Room Air Orders Orders Chest, Single Ap (05/11/17 11:21) MDM Supervised Visit with FLACO: Yvette Grant May 11, 2017 11:20
--- NOTE | 2017-05-11 12:25 | RADRPT ---
EXAM DATE/TIME: 05/11/2017 11:33 [facility] COMPARISON: CHEST SINGLE AP, January 31, 2016, 2:01. INDICATIONS : Cough, shortness of breath, and upper chest pain. MEDICAL HISTORY : None. SURGICAL HISTORY : None. ENCOUNTER: Initial ACUITY: 1 day PAIN SCORE: 5/10 LOCATION: Bilateral upper chest FINDINGS: Single AP view of the chest. The lungs are clear. Cardiomediastinal silhouette within normal limits. No evidence of pleural effusion or pneumothorax. CONCLUSION: No acute cardiopulmonary disease identified. Bryce Sarah MD on May 11, 2017 at 12:21 Board Certified Radiologist. This report was verified electronically.
--- NOTE | 2017-05-11 12:33 | PD ---
HPI Chief Complaint: Respiratory Symptoms Time Seen by Provider: 12:25 Travel History International Travel<30 days: No Contact w/Intl Traveler<30days: No Traveled to known affect area: No History of Present Illness HPI 51-year-old female presents to emergency department complaining of right-sided sinus pressure, headache, occasional productive cough and wheezing for approximately 4 days. Patient states that she has been sick for approximately 10 days with an upper respiratory infection and runny nose but has worsened over the last 4 days. Patient states that she went to the walk-in clinic approximately one week ago where she was prescribed Keflex but this is not reduced her symptoms. Patient denies shortness of breath but does have mild chest wall tenderness with coughing. States she has had difficult time sleeping as a result of her symptoms. Says she has felt feverish and has been using Tylenol and Aleve for her discomfort. She did have sick contacts at work. PFSH Past Medical History Asthma: No Blood Disorders: No Anxiety: Yes Depression: Yes Heart Rhythm Problems: No Cancer: No Cardiovascular Problems: No High Cholesterol: No Chemotherapy: No Chest Pain: No Congestive Heart Failure: No COPD: No Diabetes: No Diminished Hearing: No Endocrine: No Gastrointestinal Disorders: Yes (FATTY LIVER AND GALLSTONES) Genitourinary: No Hepatitis: Yes (HEP C) Immune Disorder: No Musculoskeletal: No Neurologic: No Psychiatric: Yes Reproductive: No Respiratory: No Immunizations Current: No Thyroid Disease: No ?: Not Menopausal: Yes : 2 Para: 2 Miscarriage: 0 : 0 Past Surgical History Abdominal Surgery: Yes (hernia) Appendectomy: Yes Cholecystectomy: Yes Other Surgery: Yes (BREAST IMPLANTS) Social History Alcohol Use: Yes (vodka) Tobacco Use: No Substance Use: Yes (alcohol) Allergies-Medications (Allergen,Severity, Reaction): Coded Allergies: amoxicillin (Unverified Allergy, Severe, HIVES, 05/11/17) Reported Meds & Prescriptions Reported Meds & Active Scripts Active Ventolin Hfa 18 GM Inh (Albuterol Sulfate) 90 Mcg/Act Aer 2 Puff INH Q6H PRN Medrol Dosepak (Methylprednisolone) 4 Mg Dspk 4 Mg PO DIRECTED Per Pharmacist direction Bactrim DS (Sulfamethoxazole-Trimethoprim) 800-160 Mg Tab 1 Tab PO BID Ibuprofen 400 Mg Tab 400 Mg PO Q8H PRN Reported Xanax (Alprazolam) 2 Mg Tab 2 Mg PO BID PRN Review of Systems Except as stated in HPI: all other systems reviewed are Neg Physical Exam Narrative GENERAL: Well-developed well-nourished in mild distress SKIN: Focused skin assessment warm/dry. HEAD: Atraumatic. Normocephalic. EYES: Pupils equal and round. No scleral icterus. No injection or drainage. ENT: Clear nasal discharge. Mucous membranes pink and moist. NECK: Trachea midline. No JVD. Right-sided anterior cervical lymphadenopathy TTP to right frontal and maxillary sinuses CARDIOVASCULAR: Mildly tachycardic and regular No murmur appreciated. RESPIRATORY: No accessory muscle use. Clear to auscultation. Breath sounds equal bilaterally. MUSCULOSKELETAL: No obvious deformities. No clubbing. No cyanosis. No edema. NEUROLOGICAL: Awake and alert. No obvious cranial nerve deficits. Motor grossly within normal limits. Normal speech. PSYCHIATRIC: Appropriate mood and affect; insight and judgment normal. Data Data Last Documented VS Vital Signs Date Time Temp Pulse Resp B/P (MAP) Pulse Ox O2 Delivery O2 Flow Rate FiO2 05/11/17 13:03 05/11/17 10:57 98.3 107 18 96 Room Air Orders Orders Chest, Single Ap (05/11/17 11:21) Methylprednisolone So Succ Inj (Solumedr (05/11/17 12:45) Sulfameth-Trimeth 400-80 Mg (Bactrim 400 (05/11/17 12:45) Acetamin-Hydrocod 325-5 Mg ([place] 5-325 (05/11/17 12:45) Sulfamet-Trimeth Ds 800-160 Mg (Bactrim (05/11/17 12:45) Ed Discharge Order (05/11/17 12:43) MDM Medical Decision Making Medical Screen Exam Complete: Yes Emergency Medical Condition: Yes Differential Diagnosis Sinusitis, upper respiratory infection, influenza Narrative Course 51-year-old female presents to emergency department complaining of right-sided sinus pressure, headache, occasional productive cough and wheezing for approximately 4 days. Patient states that she has been sick for approximately 10 days with an upper respiratory infection and runny nose but has worsened over the last 4 days. Patient states that she went to the walk-in clinic approximately one week ago where she was prescribed Keflex but this is not reduced her symptoms. Patient denies shortness of breath but does have mild chest wall tenderness with coughing. States she has had difficult time sleeping as a result of her symptoms. Says she has felt feverish and has been using Tylenol and Aleve for her discomfort. She did have sick contacts at work. Vital signs- mildly tachycardic, anxious Physical exam findings consistent with acute sinusitis with the right maxillary frontal sinuses involvement. Postnasal drip. No appreciable wheezes on lung examination. CXR without acute process. SoluMedrol, Bactrim, hydrocodone administered in the emergency department. Patient will be discharged with Bactrim, Medrol Dosepak, and albuterol. Advised to follow-up with the primary care physician this week. Return to the emergency department for worsening or persistent symptoms. Diagnosis Primary Impression: Acute sinusitis Qualified Codes: J01.10 - Acute frontal sinusitis, unspecified Referrals: Primary Care Physician Additional Instructions: Take all medication as prescribed. If your symptoms persist or worsen return to the emergency department. Follow-up with the primary care physician within one week. Scripts Albuterol 18 GM Inh (Ventolin Hfa 18 GM Inh) 90 Mcg/Act Aer 2 PUFF INH Q6H Y for SHORTNESS OF BREATH, #1 INHALER 0 Refills Prov: Kathrine Perez 05/11/17 Methylprednisolone Dosepak (Medrol Dosepak) 4 Mg Dspk 4 MG PO DIRECTED, #1 DSPK 0 Refills Per Pharmacist direction Prov: Kathrine Perez 05/11/17 Sulfamethoxazole-Trimethoprim (Bactrim DS) 800-160 Mg Tab 1 TAB PO BID for Infection, #20 TAB 0 Refills Prov: Kathrine Perez 05/11/17 Disposition: 01 DISCHARGE HOME Condition: Stable Kathrine Perez May 11, 2017 12:33
[2017-05-11] MEDS ORDERED: VENTAER INH (12:38)
[2017-05-11] MEDS ORDERED: BACT800T5 PO (12:38)
[2017-05-11] MEDS ORDERED: MEDR4PAK PO (12:38)
[2017-05-11] MEDS ORDERED: SULFAMETHOXAZOLE-TRIMETHOPRIM 400-80 MG TAB PO ONE (12:45)
[2017-05-11] MEDS ORDERED: methylPREDNISolone SOD SUCC 125 MG/2 ML VIAL IM ONE (12:45)
[2017-05-11] MEDS ORDERED: ACETAMINOPHEN/HYDROcodone 325 MG/5 MG TAB PO ONE (12:45)
[2017-05-11] MEDS ORDERED: SULFAMETHOXAZOLE-TRIMETHOPRIM DS 800-160 MG TAB PO ONE (12:45)
== END 2017-05-11 13:03 | disposition home or self-care (01) ==
LOC: NEPK 10:55
DX: J01.10 Acute frontal sinusitis, unspecified (principal); R51 Headache; R00.0 Tachycardia, unspecified; F41.9 Anxiety disorder, unspecified; F32.9 Major depressive disorder, single episode, unspecified; Z86.19 Personal history of other infectious and parasitic diseases; Z88.0 Allergy status to penicillin; Z79.899 Other long term (current) drug therapy
CPT/HCPCS: 71045; 96372; 99284; J2930

== ENCOUNTER 2017-05-16 10:41 | Emergency (ER) | payer MEDICAID ==
[~2017-05-16] VITALS: Ht 165.1 cm; Wt 75.0 kg
[~2017-05-16 10:41] MED LIST changes: +BACT800T5 PO; +MEDR4PAK PO; +VENTAER INH
[2017-05-16 10:43] VITALS: BP 154/96; PULSE 87; RESP 16; TEMP 98.8; O2SAT 97
[2017-05-16] MEDS ORDERED: ZOLO100T PO (11:05)
[2017-05-16] MEDS ORDERED: ARIP1TAB12 PO (11:05)
--- NOTE | 2017-05-16 11:08 | PD ---
HPI Chief Complaint: Respiratory Symptoms Time Seen by Provider: 10:53 Travel History International Travel<30 days: No Contact w/Intl Traveler<30days: No Traveled to known affect area: No History of Present Illness HPI The patient was seen and examined in the presence of the nurse. This patient complains of cough and congestion. She was seen here 5 days ago and got antibiotics detail. She has discomfort in her left when she moves her chest or coughs. Denies hemoptysis or fever. Symptoms severity is moderate PFSH Past Medical History Asthma: No Blood Disorders: No Anxiety: Yes Depression: Yes Heart Rhythm Problems: No Cancer: No Cardiovascular Problems: No High Cholesterol: No Chemotherapy: No Chest Pain: No Congestive Heart Failure: No COPD: No Diabetes: No Diminished Hearing: No Endocrine: No Gastrointestinal Disorders: Yes (FATTY LIVER AND GALLSTONES) Genitourinary: No Hepatitis: Yes (HEP C) Immune Disorder: No Musculoskeletal: No Neurologic: No Psychiatric: Yes Reproductive: No Respiratory: No Immunizations Current: No Thyroid Disease: No ?: Not Menopausal: Yes : 2 Para: 2 Miscarriage: 0 : 0 Past Surgical History Abdominal Surgery: Yes (hernia) Appendectomy: Yes Cholecystectomy: Yes Other Surgery: Yes (BREAST IMPLANTS) Social History Alcohol Use: No ( hx of last drink was feb 11) Tobacco Use: No Substance Use: Yes (hx of ) Allergies-Medications (Allergen,Severity, Reaction): Coded Allergies: amoxicillin (Unverified Allergy, Severe, HIVES, 05/16/17) Reported Meds & Prescriptions Reported Meds & Active Scripts Active Ventolin Hfa 18 GM Inh (Albuterol Sulfate) 90 Mcg/Act Aer 2 Puff INH Q6H PRN Bactrim DS (Sulfamethoxazole-Trimethoprim) 800-160 Mg Tab 1 Tab PO BID Reported Zoloft (Sertraline HCl) 100 Mg Tab 100 Mg PO DAILY Aripiprazole 10 Mg Tab 10 Mg PO DAILY Xanax (Alprazolam) 2 Mg Tab 2 Mg PO BID PRN Review of Systems HENT: Positive: Rhinorrhea, No: Headaches Respiratory: Positive: Cough Gastrointestinal: No: Vomiting Genitourinary: No: Dysuria Musculoskeletal: Positive: Myalgias Physical Exam Narrative GENERAL: Well-nourished, well-developed patient in no apparent distress. SKIN: Focused skin assessment reveals no rash and nodules. Skin is Warm and dry. HEAD: Atraumatic. Normocephalic. EYES: Pupils equal and round. No scleral icterus. No injection or drainage. ENT: No nasal bleeding or discharge. Mucous membranes pink and moist. NECK: Trachea midline. No JVD. CARDIOVASCULAR: Regular rate and rhythm. No murmur appreciated. RESPIRATORY: No accessory muscle use. Clear to auscultation. Breath sounds equal bilaterally. GASTROINTESTINAL: Abdomen soft, non-tender, nondistended. Hepatic and splenic margins not palpable. MUSCULOSKELETAL: No obvious deformities. No clubbing. No cyanosis. No edema. Has reproducible left-sided chest wall tenderness in the midaxillary line. No crepitus or bruising. NEUROLOGICAL: Awake and alert. No obvious cranial nerve deficits. Motor grossly within normal limits. Normal speech. PSYCHIATRIC: Appropriate mood and affect; insight and judgment normal. Data Data Last Documented VS Vital Signs Date Time Temp Pulse Resp B/P (MAP) Pulse Ox O2 Delivery O2 Flow Rate FiO2 05/16/17 11:00 Nasal Cannula 05/16/17 10:43 98.8 87 16 154/96 (115) 97 Orders Orders Chest, Pa & Lat (05/16/17 ) Oxycodone-Acetamin 5-325 Mg (Percocet (05/16/17 12:00) MDM Medical Decision Making Medical Screen Exam Complete: Yes Emergency Medical Condition: Yes Medical Record Reviewed: Yes Differential Diagnosis Bronchitis, pneumonia, URI, intercostal muscle tear Narrative Course I have reviewed the patient's electronic medical record. Reviewed her visit from 5 days ago I reviewed her PA and lateral chest x-ray which shows a small area of atelectasis in the left side but no consolidation or pneumothorax Patient is usp through her and about a course and will finish that She has an inhaler She clearly has musculoskeletal chest pain on the left side. It's readily reproducible with palpation or movement of the chest wall. It is not a PE or ACS I gave HER-2 pain pills here and wrote her prescription for some Tylenol with Codeine Diagnosis Primary Impression: Musculoskeletal chest pain Additional Impression: Acute bronchitis Qualified Codes: J20.9 - Acute bronchitis, unspecified Additional Instructions: The patient was advised to follow up with their physician and return if they worsen. The patient was warned about potential sedation for the medications they will receive on prescription. Med/Other Pt SpecificInfo: Prescription(s) given Scripts Acetaminophen-Codeine (Tylenol-Codeine #3) 300-30 mg Tab 1 TAB PO Q4H Y for PAIN, #20 TAB 0 Refills Prov: Brett Gonzales MD 05/16/17 Disposition: 01 DISCHARGE HOME Condition: Stable Brett Gonzales MD May 16, 2017 11:08
--- NOTE | 2017-05-16 11:30 | RADRPT ---
EXAM DATE/TIME: 05/16/2017 11:12 [facility] COMPARISON: CHEST PA & LAT, February 03, 2016, 10:13. CHEST SINGLE AP, May 11, 2017, 11:33. INDICATIONS : Left flank and rib pain. Coughing and shortness of breath. MEDICAL HISTORY : Gastroesophageal reflux disease. Hepatitis C. SURGICAL HISTORY : Appendectomy. Cholecystectomy. Breast implants. ENCOUNTER: Initial ACUITY: 2 weeks PAIN SCORE: 10/10 LOCATION: Bilateral chest Left lower. FINDINGS: PA and lateral views of the chest demonstrate the lungs to be symmetrically aerated without evidence of mass, infiltrate or effusion. The cardiomediastinal contours are unremarkable. Osseous structure s are intact. There is development of a thin horizontal linear area of density atelectasis in left gareth ng base CONCLUSION: Development of a thin horizontal area of discoid atelectasis left lung base Margarito Clancy MD on May 16, 2017 at 11:26 Board Certified Radiologist. This report was verified electronically.
[2017-05-16] MEDS ORDERED: TYLETAB34 PO (11:50)
[2017-05-16] MEDS ORDERED: oxyCODONE/ACETAMINOPHEN 5 MG/325 MG TAB PO ONE (12:00)
== END 2017-05-16 14:12 | disposition home or self-care (01) ==
LOC: NEPD 10:41
DX: R07.89 Other chest pain (principal); J20.9 Acute bronchitis, unspecified; B19.20 Unspecified viral hepatitis C without hepatic coma
CPT/HCPCS: 71046; 99283

== ENCOUNTER 2017-05-28 02:25 | Emergency (ER) | payer MEDICAID, OTHER ==
[~2017-05-28 02:25] MED LIST changes: +ARIP1TAB12 PO; -IBUP1TAB5 PO; -MEDR4PAK PO; +TYLETAB34 PO; +ZOLO100T PO
[2017-05-28 02:50] VITALS: BP 104/54; PULSE 79; RESP 20; TEMP 97.8; O2SAT 98
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
[2017-05-28 03:34] LABS: BILIRUBIN, URINE NEG (NEG); BLOOD, URINE NEG (NEG); GLUCOSE,URINE NEG (NEG); KETONE, URINE NEG (NEG); NITRITE,URINE NEG (NEG); PH, URINE 6.5 (5.0-8.5); URINE COLOR COLORLESS (YELLW/STRAW); URINE LEUKOCYTE ESTERASE NEG (NEG)
[2017-05-28 04:08] LABS: AUTOMATED NEUTROPHIL # 2.5 TH/MM3 (1.8-7.7); BASOPHIL % 0.6 % (0.0-2.0); BLOOD UREA NITROGEN 12 MG/DL (7-18); CALCIUM 8.2 MG/DL (8.5-10.1); CHLORIDE 111 MEQ/L (98-107); CREATININE 0.89 MG/DL (0.50-1.00); EOSINOPHIL # 0.2 TH/MM3 (0-0.4); EOSINOPHIL % 3.5 % (0.0-4.0); GLOMERULAR FILTRATION RATE 67 ML/MIN (>89); GLUCOSE,RANDOM 119 MG/DL (74-106); HEMATOCRIT 42.8 % (35.0-46.0); HEMOGLOBIN 14.5 GM/DL (11.6-15.3); LYMPH % 48.7 % (9.0-44.0); LYMPHOCYTE # 2.9 TH/MM3 (1.0-4.8); MEAN CELL VOLUME 91.1 FL (80.0-100.0); MEAN CORPUSCULAR HEMOGLOBIN 30.8 PG (27.0-34.0); MEAN CORPUSCULAR HGB CONC 33.9 % (32.0-36.0); MEAN PLATELET VOLUME 8.6 FL (7.0-11.0); MONO % 5.1 % (0.0-8.0); MONOCYTE # 0.3 TH/MM3 (0-0.9); NEUT % 42.1 % (16.0-70.0); PLATELET COUNT 166 TH/MM3 (150-450); RED CELL DISTRIBUTION WIDTH 14.2 % (11.6-17.2); SODIUM (NA) 147 MEQ/L (136-145)
[2017-05-28 04:10] LABS: ACETAMINOPHEN LESS THAN 2.0 MCG/ML (10.0-30.0)
[2017-05-28 08:28] VITALS: BP 106/55; PULSE 71; RESP 15; O2SAT 98
--- NOTE | 2017-05-28 09:30 | PD ---
History of Present Illness Chief Complaint: Psychiatric Symptoms Time Seen by Provider: 09:00 Travel History International Travel<30 Days: No Contact w/Intl Traveler<30days: No Known affected area: No Legal Status Legal Status: Escamilla Act Escamilla Act Signed By: Chip Rivera Escamilla Act Comment: 2017 [id number] History of Present Illness: 51-year-old female brought in under a Escamilla act for admittedly making suicidal and homicidal threats. Patient denies any suicidal or homicidal ideation, plan or intent at this time. She was extremely angry with her boyfriend. She is also noted to have been intoxicated. At this point she is not intoxicated and she is verbally roxann for safety. She has no cognitive deficits and no psychotic symptoms. She is felt to be competent to contract for safety. PFS Past Medical History ADHD: Yes Asthma: No Blood Disorders: No Bipolar Disorder: Yes Anxiety: Yes Depression: Yes Heart Rhythm Problems: No Cancer: No Cardiovascular Problems: No High Cholesterol: No Chemotherapy: No Chest Pain: No Congestive Heart Failure: No COPD: No Diabetes: No Diminished Hearing: No Endocrine: No Gastrointestinal Disorders: Yes (FATTY LIVER AND GALLSTONES) Genitourinary: No Hepatitis: Yes (HEP C) Immune Disorder: No Musculoskeletal: No Neurologic: No Psychiatric: Yes Reproductive: No Respiratory: No Immunizations Current: No Thyroid Disease: No ?: Not Menopausal: Yes : 2 Para: 2 Miscarriage: 0 : 0 Past Surgical History Abdominal Surgery: Yes (hernia) Appendectomy: Yes Cholecystectomy: Yes Other Surgery: Yes (BREAST IMPLANTS) Psychiatric History Psychiatric History Hx Psychiatric Treatment: Hx Depression and Anxiety. SEES DEONDRE JOHNSON IN [facility], PRESCRIBES XANAX AND POSSIBLY VISTARIL FOR SLEEP. ONE PREVIOUS INPATIENT ADMISSION AT AGE 20. This physician does not see significant objective clinical evidence of bipolar disorder at this time. History of Inpatient Treatment: Yes Guns or firearms in home: No Social History Hx Alcohol Use: Yes Hx Tobacco Use: No Hx Substance Use: Yes (over uses prescriptions at times) Substance Use Type: Alcohol, Benzos (Valium,Xanax) Hx of Substance Use Treatment: No Allergies-Medications (Allergen,Severity, Reaction): Coded Allergies: amoxicillin (Unverified Allergy, Severe, HIVES, 05/28/17) Reported Meds & Prescriptions Reported Meds & Active Scripts Active Tylenol-Codeine #3 (Acetaminophen-Codeine) 300-30 mg Tab 1 Tab PO Q4H PRN Ventolin Hfa 18 GM Inh (Albuterol Sulfate) 90 Mcg/Act Aer 2 Puff INH Q6H PRN Reported Zoloft (Sertraline HCl) 100 Mg Tab 100 Mg PO DAILY Aripiprazole 10 Mg Tab 10 Mg PO DAILY Xanax (Alprazolam) 2 Mg Tab 2 Mg PO BID PRN Review of Systems Except as stated in HPI: all other systems reviewed are Neg Mental Status Examination Appearance: Appropriate Consciousness: Alert Orientation: x4 Motor Activity: Normal gait Speech: Unremarkable Language: Adequate Fund of Knowledge: Adequate Attention and Concentration: Adequate Memory: Unremarkable Mood: Appropriate Affect: Appropriate Thought Process & Associations: Intact Thought Content: Appropriate Hallucination Type: None Delusion Type: None Suicidal Ideation: No Suicidal Plan: No Suicidal Intention: No Homicidal Ideation: No Homicidal Plan: No Homicidal Intention: No Insight: Adequate Judgment: Adequate MDM Medical Decision Making Medical Record Reviewed: Yes Assessment/Plan Patient interviewed at bedside. Electronic medical record reviewed. Case discussed with nurse Davis. Patient does not meet criteria for Escamilla act or psychiatric hospitalization and she would like to go home. Orders Orders Complete Blood Count With Diff (05/28/17 02:40) Thyroid Stimulating Hormone (05/28/17 02:40) Basic Metabolic Panel (Bmp) (05/28/17 02:40) Urinalysis - C+S If Indicated (05/28/17 02:40) Psych Screen (05/28/17 02:40) Drug Screen, Random Urine (05/28/17 02:40) Alcohol (Ethanol) (05/28/17 02:40) Salicylates (Aspirin) (05/28/17 02:40) Tylenol (Acetaminophen) (05/28/17 02:40) Results Vital Signs Date Time Temp Pulse Resp B/P (MAP) Pulse Ox O2 Delivery O2 Flow Rate FiO2 05/28/17 08:28 71 15 106/55 (72) 98 Room Air 05/28/17 02:50 97.8 79 20 104/54 (71) 98 Laboratory Tests Test 05/28/17 03:05 05/28/17 05:26 White Blood Count 6.0 Red Blood Count 4.70 Hemoglobin 14.5 Hematocrit 42.8 Mean Corpuscular Volume 91.1 Mean Corpuscular Hemoglobin 30.8 Mean Corpuscular Hemoglobin Concent 33.9 Red Cell Distribution Width 14.2 Platelet Count 166 Mean Platelet Volume 8.6 Neutrophils (%) (Auto) 42.1 Lymphocytes (%) (Auto) 48.7 Monocytes (%) (Auto) 5.1 Eosinophils (%) (Auto) 3.5 Basophils (%) (Auto) 0.6 Neutrophils # (Auto) 2.5 Lymphocytes # (Auto) 2.9 Monocytes # (Auto) 0.3 Eosinophils # (Auto) 0.2 Basophils # (Auto) 0.0 CBC Comment DIFF FINAL Differential Comment Urine Color COLORLESS Urine Turbidity CLEAR Urine pH 6.5 Urine Specific [place] 1.001 Urine Protein NEG Urine Glucose (UA) NEG Urine Ketones NEG Urine Occult Blood NEG Urine Nitrite NEG Urine Bilirubin NEG Urine Urobilinogen LESS THAN 2.0 Urine Leukocyte Esterase NEG Microscopic Urinalysis Comment CULT NOT INDICATED Blood Urea Nitrogen 12 Creatinine 0.89 Random Glucose 119 Calcium Level 8.2 Sodium Level 147 Potassium Level 3.5 Chloride Level 111 Carbon Dioxide Level 31.0 Anion Gap 5 Estimat Glomerular Filtration Rate 67 Thyroid Stimulating Hormone 3rd Gen 3.780 Salicylates Level LESS THAN 1.7 Acetaminophen Level LESS THAN 2.0 Ethyl Alcohol Level 211 Urine Opiates Screen NEG Urine Barbiturates Screen NEG Urine Amphetamines Screen NEG Urine Benzodiazepines Screen POS Urine Cocaine Screen NEG Urine Cannabinoids Screen NEG Diagnosis Primary Impression: Alcohol abuse Departure Forms: Tests/Procedures Patient Instructions: General Instructions Condition: Stable Julien John MD May 28, 2017 09:30
--- NOTE | 2017-05-28 12:05 | PD ---
Data Data Last Documented VS Vital Signs Date Time Temp Pulse Resp B/P (MAP) Pulse Ox O2 Delivery O2 Flow Rate FiO2 05/28/17 12:08 73 17 109/52 (71) 97 05/28/17 08:28 Room Air 05/28/17 02:50 97.8 Orders Orders Complete Blood Count With Diff (05/28/17 02:40) Thyroid Stimulating Hormone (05/28/17 02:40) Basic Metabolic Panel (Bmp) (05/28/17 02:40) Urinalysis - C+S If Indicated (05/28/17 02:40) Psych Screen (05/28/17 02:40) Drug Screen, Random Urine (05/28/17 02:40) Alcohol (Ethanol) (05/28/17 02:40) Salicylates (Aspirin) (05/28/17 02:40) Tylenol (Acetaminophen) (05/28/17 02:40) Ed Discharge Order (05/28/17 12:04) Labs Laboratory Tests Test 05/28/17 03:05 05/28/17 05:26 White Blood Count 6.0 TH/MM3 Red Blood Count 4.70 MIL/MM3 Hemoglobin 14.5 GM/DL Hematocrit 42.8 % Mean Corpuscular Volume 91.1 FL Mean Corpuscular Hemoglobin 30.8 PG Mean Corpuscular Hemoglobin Concent 33.9 % Red Cell Distribution Width 14.2 % Platelet Count 166 TH/MM3 Mean Platelet Volume 8.6 FL Neutrophils (%) (Auto) 42.1 % Lymphocytes (%) (Auto) 48.7 % Monocytes (%) (Auto) 5.1 % Eosinophils (%) (Auto) 3.5 % Basophils (%) (Auto) 0.6 % Neutrophils # (Auto) 2.5 TH/MM3 Lymphocytes # (Auto) 2.9 TH/MM3 Monocytes # (Auto) 0.3 TH/MM3 Eosinophils # (Auto) 0.2 TH/MM3 Basophils # (Auto) 0.0 TH/MM3 CBC Comment DIFF FINAL Differential Comment Urine Color COLORLESS Urine Turbidity CLEAR Urine pH 6.5 Urine Specific [place] 1.001 Urine Protein NEG mg/dL Urine Glucose (UA) NEG mg/dL Urine Ketones NEG mg/dL Urine Occult Blood NEG Urine Nitrite NEG Urine Bilirubin NEG Urine Urobilinogen LESS THAN 2.0 MG/DL Urine Leukocyte Esterase NEG Microscopic Urinalysis Comment CULT NOT INDICATED Blood Urea Nitrogen 12 MG/DL Creatinine 0.89 MG/DL Random Glucose 119 MG/DL Calcium Level 8.2 MG/DL Sodium Level 147 MEQ/L Potassium Level 3.5 MEQ/L Chloride Level 111 MEQ/L Carbon Dioxide Level 31.0 MEQ/L Anion Gap 5 MEQ/L Estimat Glomerular Filtration Rate 67 ML/MIN Thyroid Stimulating Hormone 3rd Gen 3.780 uIU/ML Salicylates Level LESS THAN 1.7 MG/DL Acetaminophen Level LESS THAN 2.0 MCG/ML Ethyl Alcohol Level 211 MG/DL Urine Opiates Screen NEG Urine Barbiturates Screen NEG Urine Amphetamines Screen NEG Urine Benzodiazepines Screen POS Urine Cocaine Screen NEG Urine Cannabinoids Screen NEG MDM Supervised Visit with FLACO: Yes Narrative Course Patient was admitted last night for suicidal ideation after being found in her car sobbing. She states that it was all of a sudden understanding she had a fight with her significant other and is moving out, she admits to drinking prior to driving last night, she has no physical complaints at this time, Francine marcial his been lifted by psychiatric physician, at this time the patient is medically cleared for discharge. Discussed with her need for counseling regarding alcoholism follow-up with Felice marcial. She states she is a recovering alcoholic and had a relapse last night. Clinically sober at this time. Diagnosis Primary Impression: Alcohol abuse Referrals: [facility] Patient Instructions: General Instructions Departure Forms: Tests/Procedures Disposition: 01 DISCHARGE HOME Condition: Stable Socrates Sr MD May 28, 2017 12:05
[2017-05-28 12:08] VITALS: BP 109/52
== END 2017-05-28 12:10 | disposition home or self-care (01) ==
LOC: NEPD 02:25
DX: F10.24 Alcohol dependence with alcohol-induced mood disorder (principal); F31.9 Bipolar disorder, unspecified; F41.9 Anxiety disorder, unspecified; Y90.7 Blood alcohol level of 200-239 mg/100 ml; Z79.899 Other long term (current) drug therapy
CPT/HCPCS: 80048; 80307; 81001; 84443; 85025; 99284